=== PATIENT | male | born 1990 | race Caucasian/White ===

== ENCOUNTER → 2019-03-25 | Outpatient (CLI) | payer OTHER, SELFPAY | END | disposition home or self-care (01) | LOC: LABSPEC 15:51 | PROVIDERS: Family Provider Family Medicine; PCP Family Medicine; Referring Provider Otolaryngology; Visit Provider Otolaryngology | DX: J02.9 Acute pharyngitis, unspecified (principal) | CPT/HCPCS: 87070 ==

== ENCOUNTER → 2019-03-31 | Outpatient (CLI) | payer OTHER, SELFPAY ==
--- NOTE | 2019-03-31 06:52 | CT_ITS ---
STUDY: CT SOFT TISSUE NECK WITH CONTRAST REASON FOR EXAM: Male, 28 years old. Enlarging right neck mass for 4 weeks. RADIATION DOSAGE (If Supplied By Facility): CTDIvol = ( 18.64 ) mGy, DLP = ( 600.59 ) mGycm TECHNIQUE: The patient was scanned in a multi-detector CT scanner. High resolution transaxial imaging was performed following intravenous administration of IV Isovue 300 75. Sagittal and coronal images were reconstructed. Individualized dose optimization techniques were used for this CT. COMPARISON: None. FINDINGS: Normal bilateral parotid glands. 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 Normal bilateral parapharyngeal spaces. Within the carotid space deep to the right sternocleidomastoid muscle is a large well-circumscribed, homogeneous soft tissue attenuation mass measuring 4.8 x 5.2 x 2.7 cm in the craniocaudad, AP and transverse dimensions respectively, coronal image 55 and axial image 68. The mass does not appear vascular and does not significantly enhance. The mass displaces the carotid vessels medially. No osseous destruction. Normal bilateral sublingual and submandibular glands and spaces. Normal visualized nasopharynx. Normal retropharyngeal space. Normal perivertebral space. Normal visualized bilateral faucial tonsils. The visualized tongue, tongue base and oropharynx are normal. The visualized cervical lymph nodes (levels I-) are within normal size limits, and maintain normal morphology. There is no demonstrated solid or cystic mass lesion. There is no abnormal contrast enhancement. Normal epiglottis, bilateral vallecula and hypopharynx. The pre-epiglottic and paraglottic adipose spaces are normal. Normal visualized bilateral piriform sinuses, aryepiglottic folds, vocal cords, and arytenoid-cricoid articulations. Normal subglottic trachea. Normal bilateral lobes of the thyroid gland. Normal visualized pulmonary apices. Normal visualized paranasal sinuses. Normal visualized cervical spine. CT/Soft Tissue Neck WITH Contrast IMPRESSION: 5.2 cm fairly well-circumscribed right carotid space mass which is likely benign. Correlate with MRI with contrast. Electronically Signed: French Quintero MD at 8:21 EDT , Service support ,
== END | disposition home or self-care (01) ==
PROVIDERS: Family Provider Family Medicine; PCP Family Medicine; Referring Provider Otolaryngology; Visit Provider Otolaryngology
DX: R22.1 Localized swelling, mass and lump, neck (principal)
CPT/HCPCS: 70491; Q9967

== ENCOUNTER → 2019-04-12 | Outpatient (CLI) | payer OTHER, SELFPAY ==
--- NOTE | 2019-04-12 | ASPOS_PTH ---
PATIENT: PARISH RAZA LOC: [facility]#:[id number] AGE/SX: 28/M ROOM: RE04/12/[address]: Dr. Ramiro Alcala MD : 1990 BED: DIS: 04/12/2019 SPEC #: [id number] RECD: 04/12/19 10:41 STATUS: CHANDLER REJose A #: [id number] FRANKLIN: 04/12/19 00:[address]: Ramiro Alcala DEPT: CYTOLOGY RECD BY: Radames Sales ENTERED: 04/12/19 10:41 SP TYPE: ASP HERE OTHR DR: Dr. Armando Brito MD Tissues: Neck, NOS Procedures: Surgery Specimen Level IV Cytology Other Fine Needle Asp on Site HEADER OPERATION: FNA right neck mass PRE-OP DIAGNOSIS: Right neck mass TISSUE SUBMITTED: FNA right neck mass; smear and fluid for cytology, cell block and flow DIAGNOSIS CYTOLOGY Fine needle aspiration, right neck mass (smears & cell block): Consistent with B-cell lymphoma. See Comment. COMMENT The specimen is evaluated at the time of FNA by Dr. Bradford. 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 FLOW analysis reveals a CD10+ B-cell lymphoma (immunophenotype of germinal center origin, Burkitt lymphoma/Burkitt-like lymphoma or subset of diffuse large B-cell Lymphoma). Immunohistochemistry ([id number]) concurs and tumor cells displays a high (>95%) Ki67 proliferation index. Clinical correlation is suggested. Case has been reviewed in consultation with Dr. Palacios who concurs with the above diagnosis. IDC:SJ CYTOLOGY STUDY Slides are reviewed. CYTOLOGY GROSS Received is 0.2 ml of reddish material labeled with the patient's name, and designated right neck mass. Five imprints and three paps are made from the submitted fluid and the rest is added to CytoLyt for cell block preparation. Submitted for cytology study. / AM:maurice 04/12/19 TC:0 CPT:36836,54425,89258,29450
--- NOTE | 2019-04-12 | IMM_PTH ---
PATIENT: PARISH RAZA [facility][id number] AGE/SX: 28/M ROOM: RE04/12/[address]: Dr. Ramiro Alcala MD : 1990 BED: DIS: 04/12/2019 SPEC #: [id number] RECD: 04/13/19 11:18 STATUS: CHANDLER REQ #: [id number] FRANKLIN: 04/12/19 00:[address]: Ramiro Alcala DEPT: IMMUNOHISTOCHEMISTRY RECD BY: Kailyn Sow ENTERED: 04/13/19 11:19 SP TYPE: IMMUNO OTHR DR: Dr. Armando Brito MD Tissues: Neck, NOS Procedures: BCL-2 (add) BCL-6 (add) CD10 (add) CD15 (add) CD20 (add) CD30 (add) CD45 (add) CD79A (add) CYCLIN (add) KI-67 (add) MUM1 (add) C-MYC (add) Pankeratin (initial) PHYSICIAN & [address] [address] SPECIMEN INFORMATION: Tissue Source: Right neck mass, fine needle aspiration Clinical Info: Right neck mass Specimen Number: [id number] CPT code: 32946, 53598 x12 METHODOLOGY: Deparaffinized sections of prefer/formalin-fixed tissue or PAP/DQ stained slides are incubated with monoclonal/polyclonal antibodies/oligonucleotide probes. Localization is made via biotin free immunoperoxidase method. Appropriate controls are performed and reacted as expected. Results on target cell population are indicated in the following table: RESULTS: ANTIBODY / CLONE RESULT AE1-3 (AE1/AE3/PCK26) negative CD20 (L26) positive CD45 (RP2/18) positive CD79a (11E3) positive BCL-2 (bcl-2/100/D5) negative Ki-67 (30-9) positive, >95% C-MYC (Y69) positive BCL-6 (QS759P/A8) negative CD10 (56C6) positive CD15 (MMA) negative CD30 (Peter-H2) negative Cyclin D1/BCL-1 (SP4) negative MUM1 (MRQ-43) negative These tests were developed and their performance characteristics determined by [facility]. They may not have been cleared or approved by the U.S. Food and Drug Administration. The FDA has determined that such clearance or approval is not necessary. The above immunohistochemical/dualISH markers are ordered and reviewed by the Pathologist. INTERPRETATION: Right neck mass, fine needle aspiration (cell block): Consistent with B-cell lymphoma. AM:maurice 04/15/19 Comment: Flow analysis (viewable in EMR) concurs. The differential diagnosis incudes germinal center lymphoma, Burkitt/Burkitt-like lymphoma and subset of DLBCL Case has been reviewed in consultation with Dr. Palacios who concurs with the above diagnosis. IDC:ISHAAN
== END | disposition home or self-care (01) ==
LOC: LAB.FUTURE 09:15
PROVIDERS: Family Provider Family Medicine; PCP Family Medicine; Referring Provider Otolaryngology; Visit Provider Otolaryngology
DX: R22.1 Localized swelling, mass and lump, neck (principal)
CPT/HCPCS: 10021; 88161; 88305; 88341; 88342

== ENCOUNTER 2019-06-05 17:04 | Emergency (ER) | payer OTHER, SELFPAY ==
[2019-06-05] VITALS (7 sets, daily range): BP systolic 108–135; BP diastolic 65–82; PULSE 101–112; RESP 15–18; TEMP 36.9–38.7; O2SAT 96–100; BMI 29.5
--- NOTE | 2019-06-05 17:27 | CT_ITS ---
STUDY: CT BRAIN WITHOUT CONTRAST REASON FOR EXAM: Male, 28 years old. FRONTAL HEADACHE AND A FEVER -- HX:LYMPHOMA WITH LAST CHEMO ON 05-30-19 RADIATION DOSAGE (If Supplied By Facility): CTDIvol = ( 44.99 ) mGy, DLP = ( 796.11 ) mGycm TECHNIQUE: Transaxial CT imaging of the brain was performed without administration of intravenous contrast material. Individualized dose optimization techniques were used for this CT. COMPARISON: No relevant priors. FINDINGS: Normal soft tissue structures. Normal calvarium. Normal size ventricles and extra-axial spaces for the patient''s age. Normal white matter tracts of the cerebral hemispheres. Normal basal ganglia and thalami. Normal brainstem. Normal cerebellum. There is no intracranial hemorrhage. There are no findings of an acute ischemic infarction. Normal visualized paranasal sinuses. CT/Brain/Head without Contrast IMPRESSION: Normal unenhanced CT scan of the brain. Electronically Signed: Torres Handley DO at 18:46 EST Tel , Service support ,
--- NOTE | 2019-06-05 17:29 | ED.DCSUM_ITS ---
- ER Visit Summary Date of Service: 06/05/19 Chief Complaint: Fever History of Present Illness: The patient is a 28 M who presents with a fever that began today. Patient checked his temperature at home and it was 101.7. Patient is on chemotherapy for Burkitt's lymphoma. Patient states his last chemo was 6 days ago. Patient admits to a headache. Patient states the pain is over the frontal area. Patient describes it as aching. Patient states nothing makes it better or worse. Patient denies any nausea or vomiting. Patient denies any cough or shortness of breath. Physical Examination: Vital signs are stable. Patient is afebrile here. Patient is in no acute distress. Oral mucosa is pink and moist. Neck is supple. Trachea is midline. There is no JVD. Heart was regular rate and rhythm. Lungs are clear and equal bilaterally. Abdomen is soft. Bowel sounds are normal. Cranial nerves II through XII are intact. There are no focal motor or sensory deficits noted. Test Results: CBC showed a white blood cell count of 0.5, hemoglobin was 7.2, platelets are 8. Metabolic profile was essentially within normal limits. Urinalysis does not show any evidence of urinary tract infection. PA and lateral chest x-ray was obtained and does not show any acute cardiopulmonary process. Emergency Department Course and Treatment: Patient was given a dose of Tylenol here. Blood cultures were obtained. Patient was started on Zosyn and vancomycin. Case was discussed with Dr. Patel who is on-call for his oncologist at [facility]. He recommended transferring the patient to the main campus at [facility]. Patient is agreeable with this. Call was placed to the transfer line. Patient will be transferred there. Disposition: Transfer to [facility] Impression: 1. Neutropenic fever 2. Pancytopenia This note was generated with PulsePoint dictation software. It may contain incorrect words, spelling, and punctuation that were not noted in review of the chart prior to signing ED Disposition - Plan for ED Patient: Disposition: Acute Care Hospital - Other Diagnosis: Neutropenic fever, Pancytopenia, Burkitts lymphoma Referrals: Armando Brito MD [Primary Care Provider] -
--- NOTE | 2019-06-05 18:12 | RAD_ITS ---
STUDY: X-RAY CHEST REASON FOR EXAM: Male, 28 years old. CHEMO PT HAD FEVER 101.7 AT HOME. LAST CHEMO THIS PAST THURSDAY. CANCER TX FOR LYMPHOMA. TECHNIQUE: PA and lateral views of the chest. COMPARISON: None. FINDINGS: The lungs are clear and expanded. There is no demonstrated pleural abnormality. Normal size heart. Normal mediastinum and rachelle. Normal visualized pulmonary arteries. Normal visualized aortic arch and descending thoracic aorta. Normal visualized thoracic spine. Normal visualized ribs, clavicles, and shoulders. There is no demonstrated abnormality of the visualized soft tissue structures of the upper abdomen. RAD/Chest PA and Lateral IMPRESSION: Normal x-ray examination of the chest. Electronically Signed: Torres Handley DO at 18:29 EST Tel , Service support ,
[2019-06-05 18:27] LABS: Absolute Lymphocyte Count 0.21 X10^3/uL (0.83-4.51); Absolute Neutrophil Count 0.1 X10^3/uL (2.0-7.7); Basophil# 0.01 X10^3/uL; Hematocrit 19.3 % (40-54); Hemoglobin 7.2 g/dL (13.0-16.5); Lymphocyte # 0.21 X10^3/ul (4.0); Mean Corp Hgb Conc 37.3 g/dL (32-36); Mean Corpuscular Volume 77.8 fL (80-94); Mean Platelet Vol. 10.1 fl (6.2-12.0); Monocyte# 0.17 X10^3/uL; NRBC Flagged by Analyzer 0 % (0-5); POSITIVE COUNT YES; POSITIVE DIFFERENTIAL YES; POSITIVE MORPHOLOGY YES; RBC Distribution Width CV 12.8 % (11.6-14.6); RBC Distribution Width SD 35.7 fl (35.1-43.9); Red Blood Count 2.48 M/mm3 (4.6-6.2)
[2019-06-05 18:37] LABS: ALB/GLOB Ratio 1.1 RATIO (0.9-2.4); AST(SGOT) 12 U/L (15-37); Alanine Aminotransfer ALT/SGPT 52 U/L (16-61); Albumin, Serum 3.6 g/dL (3.2-5.0); Alkaline Phosphatase 51 U/L (45-117); Anion Gap 4 (5-15); BUN 12 mg/dL (7-18); BUN/Creat Ratio 16.2 RATIO (10-20); Calcium,Total 8.7 mg/dL (8.5-10.1); Chloride 105 mmol/L (98-107); Creatinine, Serum 0.74 mg/dL (0.70-1.30); EST Glomerular Filtration Rate 133 mL/min (>60); Est Glom Filt Rate - Afr Amer 161 mL/min (>60); Estimated Creatinine Clearance 167.96 ml/min; Globulin 3.2 g/dL (2.2-4.2); Glucose 92 mg/dL (74-106); Potassium 3.7 mmol/L (3.5-5.1); Protein, Total 6.8 g/dL (6.4-8.2); Sodium Level 139 mmol/L (136-145)
[2019-06-05 18:44] LABS: Lactic Acid 1.9 mmol/L (0.4-1.9)
[2019-06-05 18:45] LABS: Differential Indicated SCAN CRITERIA MET; Platelet Count 8 K/mm3 (150-450); White Blood Count 0.5 K/mm3 (4.4-11.0)
[2019-06-05 18:46] LABS: Differential Comment SCANNED
[2019-06-05 19:14] LABS: Bacteria 0 SEEN /hpf (None Seen); Color, Urine Yellow (Yellow); Glucose, Dipstick Normal (Normal); Ketone-Dipstick Negative (Negative); Leukocyte Esterase-Dipstick Negative /ul (Negative); Mucous, Urine 0 SEEN /hpf (<or=2+); Nitrite-Dipstick Negative (Negative); Occult Blood-Urine 10 /ul (Negative); Protein-Dipstick Negative (Negative); Red Blood Cells-Urine 0 SEEN /hpf (0-5); Specific Gravity, Urine 1.005 (1.002-1.030); Squamous Epithelial Cells - UA 0 SEEN /hpf (0-5); Urine Bilirubin Dipstick Negative (Negative); Urine Clarity Sl. Cloudy (Clear); Urine Urobilinogen Normal (Normal); White Blood Cells 0 SEEN /hpf (0-5)
[2019-06-05] MEDS: Acetaminophen 500 MG Tablet 1000 MG PO (19:31)
[2019-06-05] MEDS: Vancomycin IV 1,000 MG/200 ML BAG 200 MG IV (20:53)
--- NOTE | 2019-06-05 21:37 | ED.RN ---
CALLED TRANSFER CENTER, SPOKE TO KARTHIKEYAN, NO BED ASSIGNMENT AT THIS TIME, AND NO ETA AT THIS TIME
[2019-06-06 12:11] LABS: Pathologist Review Reviewed
== END 2019-06-05 22:42 | disposition short-term general hospital (02) ==
PROVIDERS: Emergency Provider Emergency Medicine; Family Provider Family Medicine; PCP Family Medicine
DX: D70.9 Neutropenia, unspecified (principal); R50.81 Fever presenting with conditions classified elsewhere; D61.818 Other pancytopenia; C83.70 Burkitt lymphoma, unspecified site
CPT/HCPCS: 36592; 70450; 71046; 80053; 81001; 83605; 85025; 87040; 96365; 96367; 99283; J7050; A4216

== ENCOUNTER → 2020-03-02 11:57 | Outpatient (CLI) | payer OTHER, SELFPAY ==
[2019-06-05 17:06] VITALS: BMI 29.5
[2020-03-02 15:50] LABS: Absolute Lymphocyte Count 1.48 X10^3/uL (0.83-4.51); Absolute Neutrophil Count 2.3 X10^3/uL (2.0-7.7); Basophil# 0.03 X10^3/uL; Basophil% 0.7 % (0-1); Eosinophil# 0.14 X10^3/uL; Eosinophils% 3.1 % (0-5); Hematocrit 41.9 % (40-54); Hemoglobin 14.1 g/dL (13.0-16.5); Lymphocyte # 1.48 X10^3/ul (4.0); Mean Corp Hgb Conc 33.7 g/dL (32-36); Mean Corpuscular Hgb 28.5 pg (27.0-32.0); Mean Corpuscular Volume 84.6 fL (80-94); Mean Platelet Vol. 9.1 fl (6.2-12.0); Monocyte# 0.53 X10^3/uL; Monocyte% 11.8 % (0-10); NRBC Flagged by Analyzer 0 % (0-5); Neutrophil # 2.29 X10^3/uL (2.7-7.7); Neutrophil % 51.2 % (47-70); Platelet Count 193 K/mm3 (150-450); RBC Distribution Width CV 13.2 % (11.6-14.6); RBC Distribution Width SD 40.7 fl (35.1-43.9); Red Blood Count 4.95 M/mm3 (4.6-6.2); White Blood Count 4.5 K/mm3 (4.4-11.0)
[2020-03-02 16:37] LABS: HIV - WCH Non-Reactive (Nonreactive)
[2020-03-04 14:06] LABS: HEPATITIS B SURFACE AG Negative (Negative); Hepatitis A AB, Total Negative (Negative); Hepatitis A IgM Antibody Negative (Negative); Hepatitis B Core AB IgM Negative (Negative); Hepatitis B Core Ab Total Negative (Negative); Hepatitis C Ab <0.1 s/co ratio (0.0-0.9)
[2020-03-04 16:32] LABS: Hep B Surface Antibodies Non Reactive (.)
[2020-03-08 05:23] LABS: Rapid Plasmin Reagin (RPR) NONREACTIVE (NONREACTIVE)
== END ==
PROVIDERS: PCP Family Medicine; Referring Provider Family Medicine; Visit Provider Family Medicine
DX: N50.89 Other specified disorders of the male genital organs (principal)
CPT/HCPCS: 36415; 85025; 86592; 86703; 86704; 86705; 86706; 86708; 86709; 86803; 87340

== ENCOUNTER → 2020-03-27 14:00 | Outpatient (CLI) | payer OTHER, SELFPAY ==
[2019-06-05 17:06] VITALS: BMI 29.5
[2020-03-27 22:46] LABS: Chlamydia Trachomatis by PCR Negative (Negative); Neisserai gonorrhoeae by PCR Negative (Negative); Probe Check PASS; Sample Adequacy Control PASS; Specimen Processing Control PASS
== END ==
PROVIDERS: PCP Family Medicine; Referring Provider Family Medicine; Visit Provider Family Medicine
DX: N50.89 Other specified disorders of the male genital organs (principal)
CPT/HCPCS: 87491; 87591

== ENCOUNTER → 2022-01-21 | Outpatient (CLI) | payer OTHER, SELFPAY ==
[2022-01-21 10:03] LABS: Absolute Lymphocyte Count 1.66 X10^3/uL (0.83-4.51); Absolute Neutrophil Count 2.3 X10^3/uL (2.0-7.7); Basophil# 0.02 X10^3/uL; Basophil% 0.4 % (0-1); Eosinophil# 0.14 X10^3/uL; Hematocrit 42.9 % (40-54); Hemoglobin 15.2 g/dL (13.0-16.5); Lymphocyte # 1.66 X10^3/ul (0.83-4.51); Lymphocyte % 35.5 % (19-41); Mean Corp Hgb Conc 35.4 g/dL (32-36); Mean Corpuscular Hgb 29.7 pg (27.0-32.0); Mean Corpuscular Volume 83.8 fL (80-94); Mean Platelet Vol. 8.9 fl (6.2-12.0); Monocyte# 0.53 X10^3/uL; Monocyte% 11.3 % (0-10); NRBC Flagged by Analyzer 0 % (0-5); Neutrophil # 2.32 X10^3/uL (2.7-7.7); Neutrophil % 49.6 % (47-70); Platelet Count 203 K/mm3 (150-450); RBC Distribution Width CV 13.2 % (11.6-14.6); RBC Distribution Width SD 40.1 fl (35.1-43.9); Red Blood Count 5.12 M/mm3 (4.6-6.2); White Blood Count 4.7 K/mm3 (4.4-11.0)
[2022-01-21 10:48] LABS: ALB/GLOB Ratio 1.1 RATIO (0.9-2.4); AST(SGOT) 23 U/L (15-37); Alanine Aminotransfer ALT/SGPT 44 U/L (16-61); Alkaline Phosphatase 43 U/L (45-117); Anion Gap 5 (5-15); BUN 13 mg/dL (7-18); BUN/Creat Ratio 15.7 RATIO (10-20); Calcium,Total 8.9 mg/dL (8.5-10.1); Chloride 104 mmol/L (98-107); Creatinine, Serum 0.83 mg/dL (0.70-1.30); EST Glomerular Filtration Rate 115 mL/min (>60); Est Glom Filt Rate - Afr Amer 139 mL/min (>60); Globulin 3.8 g/dL (2.2-4.2); Glucose 96 mg/dL (74-106); Potassium 4.3 mmol/L (3.5-5.1); Protein, Total 7.8 g/dL (6.4-8.2); Sodium Level 138 mmol/L (136-145); Thyroid Stim Hormone (TSH) 2.15 uIU/mL (0.358-3.74)
== END | disposition home or self-care (01) ==
LOC: MFPLAB 09:17
PROVIDERS: PCP Nurse Practitioner Family; Referring Provider Nurse Practitioner Family; Visit Provider Nurse Practitioner Family
DX: R42 Dizziness and giddiness (principal)
CPT/HCPCS: 36415; 80053; 84443; 85025

== ENCOUNTER → 2022-08-04 | Outpatient (CLI) | payer BC, SELFPAY ==
[2022-08-04 17:25] LABS: Absolute Lymphocyte Count 1.39 X10^3/uL (0.83-4.51); Absolute Neutrophil Count 2.8 X10^3/uL (2.0-7.7); Basophil# 0.02 X10^3/uL; Basophil% 0.4 % (0-1); Eosinophil# 0.13 X10^3/uL; Eosinophils% 2.7 % (0-5); Hematocrit 41.5 % (40-54); Lymphocyte # 1.39 X10^3/ul (0.83-4.51); Mean Corp Hgb Conc 33.7 g/dL (32-36); Mean Corpuscular Hgb 28.6 pg (27.0-32.0); Mean Corpuscular Volume 84.7 fL (80-94); Mean Platelet Vol. 8.9 fl (6.2-12.0); Monocyte# 0.43 X10^3/uL; NRBC Flagged by Analyzer 0 % (0-5); Neutrophil # 2.81 X10^3/uL (2.7-7.7); Neutrophil % 58.7 % (47-70); Platelet Count 210 K/mm3 (150-450); RBC Distribution Width SD 39.9 fl (35.1-43.9); White Blood Count 4.8 K/mm3 (4.4-11.0)
[2022-08-04 18:01] LABS: ALB/GLOB Ratio 1.1 RATIO (0.9-2.4); AST(SGOT) 18 U/L (15-37); Alanine Aminotransfer ALT/SGPT 31 U/L (16-61); Albumin, Serum 3.9 g/dL (3.2-5.0); Alkaline Phosphatase 55 U/L (45-117); Anion Gap 5 (5-15); BUN 18 mg/dL (7-18); BUN/Creat Ratio 20.7 RATIO (10-20); Calcium,Total 8.8 mg/dL (8.5-10.1); Chloride 109 mmol/L (98-107); Creatinine, Serum 0.87 mg/dL (0.70-1.30); EST Glomerular Filtration Rate 108 mL/min (>60); Est Glom Filt Rate - Afr Amer 131 mL/min (>60); Free T3 2.5 pg/mL (2.18-3.98); Globulin 3.6 g/dL (2.2-4.2); Glucose 114 mg/dL (74-106); Potassium 3.6 mmol/L (3.5-5.1); Protein, Total 7.5 g/dL (6.4-8.2); Sodium Level 141 mmol/L (136-145); T4 Free Direct 0.88 ng/dL (0.76-1.46); Thyroid Stim Hormone (TSH) 1.52 uIU/mL (0.358-3.74)
[2022-08-04 18:29] LABS: Hemoglobin A1c 5.3 % (3.8-5.6)
== END | disposition home or self-care (01) ==
LOC: MFPLAB 16:30
PROVIDERS: PCP Nurse Practitioner Family; Visit Provider Nurse Practitioner Family
DX: G25.0 Essential tremor (principal)
CPT/HCPCS: 36415; 80053; 83036; 84439; 84443; 84481; 85025

== ENCOUNTER → 2024-07-18 | Outpatient (CLI) | payer BC, SELFPAY ==
[2024-07-18 17:50] LABS: Absolute Lymphocyte Count 2.15 X10^3/uL (0.83-4.51); Absolute Neutrophil Count 3.3 X10^3/uL (2.0-7.7); Basophil# 0.07 X10^3/uL; Basophil% 1.1 % (0-1); Eosinophil# 0.24 X10^3/uL; Eosinophils% 3.8 % (0-5); Hematocrit 41.3 % (40-54); Hemoglobin 14.5 g/dL (13.0-16.5); Lymphocyte # 2.15 X10^3/ul (0.83-4.51); Lymphocyte % 34.2 % (19-41); Mean Corp Hgb Conc 35.1 g/dL (32-36); Mean Corpuscular Hgb 29.5 pg (27.0-32.0); Mean Corpuscular Volume 83.9 fL (80-94); Mean Platelet Vol. 9.4 fl (6.2-12.0); Monocyte# 0.54 X10^3/uL; Monocyte% 8.6 % (0-10); NRBC Flagged by Analyzer 0 % (0-5); Neutrophil # 3.27 X10^3/uL (2.7-7.7); Platelet Count 238 K/mm3 (150-450); RBC Distribution Width CV 12.7 % (11.6-14.6); RBC Distribution Width SD 38.2 fl (35.1-43.9); Red Blood Count 4.92 M/mm3 (4.6-6.2); White Blood Count 6.3 K/mm3 (4.4-11.0)
[2024-07-18 18:22] LABS: ALB/GLOB Ratio 1.2 RATIO (0.9-2.4); AST(SGOT) 26 U/L (15-37); Alanine Aminotransfer ALT/SGPT 55 U/L (16-61); Albumin, Serum 4.1 g/dL (3.2-5.0); Alkaline Phosphatase 45 U/L (45-117); Anion Gap 7 (5-15); BUN 9 mg/dL (7-18); BUN/Creat Ratio 8.8 RATIO (10-20); Calcium,Total 9.3 mg/dL (8.5-10.1); Chloride 102 mmol/L (98-107); Cholesterol 164 mg/dL (200); Creatinine, Serum 1.02 mg/dL (0.70-1.30); EST Glomerular Filtration Rate 89 mL/min (>60); Est Glom Filt Rate - Afr Amer 108 mL/min (>60); Globulin 3.5 g/dL (2.2-4.2); Glucose 79 mg/dL (74-106); High Density Lipoprotein 43 mg/dL; Potassium 3.9 mmol/L (3.5-5.1); Protein, Total 7.6 g/dL (6.4-8.2); Sodium Level 136 mmol/L (136-145); Triglycerides 52 mg/dL; Very Low Density Lipoprotein 10 mg/dL (5-40)
== END | disposition home or self-care (01) ==
LOC: MFPLAB 14:44
PROVIDERS: PCP Family Medicine; Referring Provider Family Medicine; Visit Provider Family Medicine
DX: Z13.1 Encounter for screening for diabetes mellitus (principal); C83.7 Burkitt lymphoma; Z13.220 Encounter for screening for lipoid disorders
CPT/HCPCS: 36415; 80053; 80061; 85025

== ENCOUNTER 2025-02-15 20:47 | Emergency (ER) | payer BC, SELFPAY ==
[2025-02-15 20:50] VITALS: BP 134/86; PULSE 90; RESP 18; TEMP 36.6; O2SAT 99; BMI 31.4
--- NOTE | 2025-02-15 22:23 | EDS_ITS ---
HPI History of Present Illness Chief Complaint: Nosebleed [facility] Medical History no medical history Home Medications ?Medication ?Instructions ?Recorded ?Last Taken ?Type ondansetron 8 mg disintegrating 8 mg PO TID 06/05/19 U nknown History tablet Allergy/AdvReac Type Severity Reaction Status Date / Time No Known Allergies Allergy Verified 02/15/25 20:49 Social History Smoking Status: Never smoker EXAM Physical Exam Const Vital Signs: 02/15/25 20:50 Temperature 97.9 F Temperature Source Temporal Pulse Rate 90 Respiratory Rate 18 Blood Pressure 134/86 H Blood Pressure Mean 102 Pulse Ox 99 Oxygen Delivery Method Room Air [facility] MDM Narrative Medical decision making narrative: HISTORY OF PRESENT ILLNESS: Chief complaint: Nosebleed 34-year-old male with no significant past. He resents epistaxis. Notes he has been having intermittent epistaxis for the past several weeks. Notes 2 nosebleeds today. Denies blood thinners. States he recently started taking allergy medication prevent nosebleeds from happening. REVIEW OF SYSTEMS: Pertinent positives: Epistaxis Pertinent negatives: Lightheadedness, dizziness, chest pain PHYSICAL EXAM: Nursing triage notes reviewed, Vital signs reviewed Constitutional: please see [facility] HENT: MMM, dried blood noted in the anterior right nare. No active bleeding noted. No posterior oropharyngeal clots noted. Eyes: Pupils equal round and reactive to light, Extraocular muscles intact Neck: No stridor, no JVD, full neck ROM Lungs: Clear to auscultation, No wheezing or rales. No increased work of breathing, no conversational dyspnea, no accessory muscle use, no nasal flaring. No respiratory distress noted Heart: Regular rate and rhythm, No murmurs, No rubs and No gallops, 2+ distal pulses (radial, femoral, posterior tibial) in all extremities MEDICAL DECISION MAKING: Chief Complaint: please see HPI External records reviewed: Reviewed prior imaging Factors affecting care: none [facility] Narrative: Patient was initially hemodynamically stable, afebrile and nontoxic-appearing. Exam consistent with anterior epistaxis. Applied pressure with nasal clamp. No active hemostasis noted. Given the patient intermittent symptoms over 2 weeks he opted for ED cauterization. I applied let for additional hemostasis as well as anesthesia. Use silver nitrate sticks for chemical cauterization. Patient was hemostatic after this intervention. Gave strict return precautions, home epistaxis instructions, outpatient ENT follow-up instructions. The patient and/or family, caregivers express understanding. The patient and/or family, caregivers agrees with the plan. Shared decision making: I will have a discussion with the patient and or visitors regarding risk/benefits of further testing or admission. They will be made aware of of the risk/benefits inherent in this decision they will be given the opportunity to voice understanding. Total critical care time today provided was at least 0 minutes. This excludes separately billable procedures. Critical care time (if documented) is secondary to the patient having high probability of clinically significant/life threatening deterioration in the patient's condition which required my urgent intervention. Impression: 1. Acute anterior epistaxis Dispo: Discharge home This note was generated with uBeam dictation software. It may contain incorrect words, spelling, and punctuation that were not noted in review of the chart prior to signing. Discharge Plan Triage Chief Complaint: Nosebleed ED Provider: Michael Welch Dx/Rx/DC Orders Clinical Impression: Acute anterior epistaxis Instructions: ED Epistaxis (Adult) Prescriptions: No Action ondansetron 8 MG tablet,disintegrating 8 mg PO TID Primary Care Provider: Ashley Knox Referrals: Romie Cazares MD [Med Staff - Courtesy Staff] - Activity Restrictions/Additional Instructions: Thank you for trusting us with your care today! If you develop a nosebleed at home. Hold firm pressure until your knuckles turn white or your skin blanches. Do this for 10 to 15 minutes. If you continue bleeding please blow your nose vigorously. Then apply Afrin (o xymetazoline). Afrin can be obtained [id number] at any pharmacy or drugstore. If you continue to bleed after the 2 interventions please return to the emergency department. Please return to the emergency department if your symptoms change or worsen. Please follow with your primary care physician for further outpatient evaluation and management. Print Language: Polish Disposition Disposition: Home, Self Care
[2025-02-15] MEDS: Silver Nitrate (BKC) 1 EACH TOPICAL (22:50)
[2025-02-15 23:19] VITALS: BP 133/79; PULSE 78; RESP 16; TEMP 36.6; O2SAT 100
[2025-02-15] MEDS: Lidocaine/Epi/Tetracaine 50 ML 1 APPLIC TOPICAL (23:19)
[2025-02-16] MEDS: Oxymetazoline 0.05% 1 SPRAY SPRAY.BTL 2 SPRAY NASAL (00:52)
--- NOTE | 2025-02-16 00:58 | ED.RN ---
Dressing applied to packed nose per ED MD instructions after pt ambulated well with no more active bleeding noted. Pt ambulated out of dept without difficulty.
== END 2025-02-16 00:59 | disposition home or self-care (01) ==
PROVIDERS: Emergency Provider Emergency Medicine; PCP Family Medicine; Visit Provider Emergency Medicine
DX: R04.0 Epistaxis (principal)
CPT/HCPCS: 30901; 99284

== ENCOUNTER 2025-02-16 13:54 | Emergency (ER) | payer BC, SELFPAY ==
[2025-02-16 13:55] VITALS: BP 146/86; PULSE 91; RESP 16; TEMP 36.2; O2SAT 99; BMI 32.6
[2025-02-16 16:39] VITALS: BP 144/87; PULSE 77; RESP 16; TEMP 36.3; O2SAT 100
--- NOTE | 2025-02-16 16:46 | EDS_ITS ---
HPI History of Present Illness Chief Complaint: Nosebleed Narrative Narrative: Patient is a 34-year-old male presenting to the emergency department for epistaxis. Patient was here last night for the same complaint. Had a right sided nasal packing placed. States that today he started having bleeding from the left side. Reports that since being here it is stopped. He has an appointment with ENT on Thursday. He is not on any oral anticoagulation. [facility] Medical History (Updated 02/16/25 @ 16:05 by Aleisha Chowdary) Lymphoma in remission Home Medications ?Medication ?Instructions ?Recorded ?Last Taken ?Type ondansetron 8 mg disintegrating 8 mg PO TID 06/05/19 U nknown History tablet amoxicillin 500 mg capsule 500 mg PO TID 3 days #9 cap s 02/16/25 Unknown Rx Allergy/AdvReac Type Severity Reaction Status Date / Time No Known Allergies Allergy Verified 02/16/25 13:54 Social History Smoking Status: Never smoker EXAM Physical Exam Const Vital Signs: 02/16/25 13:55 02/16/25 16:39 Temperature 97.1 F L 97.3 F L Temperature Source Temporal Pulse Rate 91 77 Respiratory Rate 16 16 Blood Pressure 146/86 H 144/87 H Blood Pressure Mean 106 106 Pulse Ox 99 100 Oxygen Delivery Method Room Air Discharge Plan Triage Chief Complaint: Nosebleed ED Provider: Morelia Samano Dx/Rx/DC Orders Prescriptions: No Action ondansetron 8 MG tablet,disintegrating 8 mg PO TID amoxicillin 500 mg capsule 500 mg PO TID 3 Days Qty: 9 0RF Primary Care Provider: Ashley Knox Referrals: Ashley Knox MD [Primary Care Provider] - Print Language: Malawian
--- NOTE | 2025-02-16 16:46 | EX.ED.DYSGE1 ---
HPI History of Present Illness Chief Complaint: Nosebleed Narrative Narrative: Patient is a 34-year-old male presenting to the emergency department for epistaxis. Patient was here last night for the same complaint. Had a right sided nasal packing placed. States that today he started having bleeding from the left side. Reports that since being here it is stopped. He has an appointment with ENT on Thursday. He is not on any oral anticoagulation. [facility] Medical History (Updated 02/16/25 @ 16:[address] Morelia Samano MD) Lymphoma in remission Home Medications ?Medication ?Instructions ?Recorded ?Last Taken ?Type ondansetron 8 mg disintegrating 8 mg PO TID 06/05/19 Unknown History tablet amoxicillin 500 mg capsule 500 mg PO TID 3 days #9 caps 02/16/25 Unknown Rx Allergy/AdvReac Type Severity Reaction Status Date / Time No Known Allergies Allergy Verified 02/16/25 13:54 Social History Smoking Status: Never smoker ROS ROS ED ROS Narrative see HPI EXAM Physical Exam Narrative Exam Narrative: Vital signs: Reviewed General: Alert and orientedx3. No acute distress HEENT: Head is normocephalic and atraumatic, sinuses nontender, pupils equal round and reactive. Packing in right naris. There is no bleeding around the packing. There is no dried blood or active bleeding from the left naris. No active bleeding seen in the posterior oropharynx. Oropharynx and throat exams normal. Neck: Supple without lymphadenopathy nontender Cardiovascular: Regular rate and rhythm, no murmurs. No rubs or gallops. Normal S1 and S2 Respiratory: Clear to auscultation bilaterally. No wheezes, rales, rhonchi Abdominal: Soft and nontender. Normal bowel sounds. No guarding or rebound. Nonsurgical abdomen Extremities: No tenderness. No bruising. Normal range of motion. Normal sensation. Skin: No rash or redness. Neurological: Cranial nerves II through XII are grossly intact. Normal strength and sensation. Normal cerebellar function The rest of the physical exam is unremarkable Const Vital Signs: 02/16/25 13:55 02/16/25 16:39 Temperature 97.1 F L 97.3 F L Temperature Source Temporal Pulse Rate 91 77 Respiratory Rate 16 16 Blood Pressure 146/86 H 144/87 H Blood Pressure Mean 106 106 Pulse Ox 99 100 Oxygen Delivery Method Room Air MDM MDM MDM Narrative Medical decision making narrative: Patient is a 34-year-old male presenting to the emergency department for epistaxis. Patient was seen and examined. Vitals are stable. Patient resting in chair comfortably no acute distress. No active bleeding on exam here. Patient has a follow-up with ENT on Thursday. Packing still in place in the right nares. He is not on any oral anticoagulation. Recommended returning if he develops any new epistaxis. Patient agreeable with the plan. Patient discharged from the Emergency Department. I do not feel that the patient's evaluation reveals any acute reason for admission at this time. I instructed them to either follow-up with their primary care physician or promptly return to the Emergency Department for reevaluation should symptoms worsen or new symptoms develop. I explained what symptoms would indicate the need to return to the emergency department. Shared decision making was used. The patient voiced understanding of the treatment plan and is agreeable with it. Clinical impression Epistaxis Discharge Plan Triage Chief Complaint: Nosebleed ED Provider: Morelia Samano Dx/Rx/DC Orders Clinical Impression: Acute anterior epistaxis Instructions: Nosebleed Prescriptions: No Action ondansetron 8 MG tablet,disintegrating 8 mg PO TID amoxicillin 500 mg capsule 500 mg PO TID 3 Days Qty: 9 0RF Stand Alone Forms: ED Work / School Excuse Primary Care Provider: Ashley Knox Referrals: Romie Cazares MD [Med Staff - Courtesy Staff] - 3-5 Days (on Thursday ) Ashley Knox MD [Primary Care Provider] - Activity Restrictions/Additional Instructions: Your evaluation in the Emergency Department did not reveal any acute reason for admission. However, I want to emphasize that you may be early in the course of a disease process or illness even if it is not present. For this reason you should follow-up within 24 hours for reevaluation with either your primary care physician or if necessary back here in the Emergency Department. You should return to the Emergency Department immediately if your symptoms worsen or new symptoms develop. Print Language: Marshallese Disposition Disposition: Home, Self Care Discharge Date/Time: 02/16/25 17:00
--- OUTSIDE RECORDS SUMMARY | 2025-02-16 21:37 | XMS RPT_ITS | CCD ---
Author Organization [facility] Care Team Providers Care Compound Machine Operator Name Role Phone Dr. Ramiro Alcala Referring Unavailable Samantha, Dr. Melia Hernandez Admitting Unava ilable Samantha, Dr. Melia Hernandez Attending Unava ilable ALISSA, WOO Riddle Attending Unavaila ble Samantha, Dr. Melia Hernandez Admitting Unava ilable Fredrick, Dr. Ramiro Johnson Referring Unavailable Unavailable Primary Care Provider Unavailabl e Alissa WALKING DRAGLINE OPERATOR-STUDENT ADMISSIONS CLERK, Mary Anne Riddle Unavailable Shobha vailable Wade REYES PhD, Merna Unavailable Ashley Knox Referring Unavailable Ashley Knox Attending Unavailable Ashley Knox Primary Care Unavailable Wade REYES PhD, Merna Unavailable Generic Provider , No Assigned Pcp Primary Car e Provider Unavailable MERNA CORONEL Attending Unavailable Ashley Knox MD Primary Care Provider [phone] Dr. Michael Welch DO Emergency Provider Selwyn REYES, Dr. Thibodeaux Emergency Provider Unavailab le Medications Current Medications Medication Drug Class(es) Dates Sig (Normalized) Sig (Original) amoxicillin 500 mg oral capsule (2 sources) Penicillin-class Antibacterial Start: 02-16-2025 take 1 capsule by mouth three times daily Amoxicillin 500 mg capsule Active 500 mg PO THREE TIMES A DAY 9 3 0 February 16, 2025 12:00am ondansetron 8 mg disintegrating oral tablet (4 sources) Serotonin-3 Receptor Antagonist Start: 06-05-2019 take 1 tablet by mouth three times daily Ondansetron 8 MG tablet,disintegra ting Active 8 mg PO THREE TIMES A DAY June 05, 2019 1:00am Problems Problem Classification Problem Date Documented Da te Episodic/Chronic Deficiency and other anemia (4 sources) Pancytopenia; Translations: [Other pancytopenia] 06-06-2019 Chronic Diseases of white blood cells (4 sources) Febrile neutropenia; Translations: [Neutropenia, unspecified] 06-06-2019 Chronic Non-Hodgkin`s lymphoma (14 sources) Burkitt's lymphoma (clinical); 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, unspecified site] Onset: 11-14-2022 06-06-2019 Chronic Other screening for suspected conditions (not mental disorders or infectious disease) (1 source) Encounter for screening for diabetes mellitus; Translations: [Encounter for screening for diabetes mellitus] Onset: 08-05-2024 Episodic Other upper respiratory disease (2 sources) Anterior epistaxis; Translations: [Epistaxis] 02-15-2025 Episodic Unclassified (1 source) on Thursday Results Test Name Value Interpretation Reference Range Facility CBC W Auto Differential pane l (Bld)on 12-02-2024 Basophils (Bld) [#/Vol] 0.02 10*3/uL [facility] Basophils/100 WBC (Bld) 0.4 % 0.0 - 2.0 % [facility] Eosinophils (Bld) [#/Vol] 0.17 10*3/uL [facility] Eosinophils/100 WBC (Bld) 3.1 % 0.0 - 6.0 % [facility] Erythrocyte distribution width (RBC) [Ratio] 12.5 % 11.5 - 14.5 % [facility] Hematocrit (Bld) [Volume fraction] 46.6 % 41.0 - 52.0 % [facility] Hemoglobin (Bld) [Mass/Vol] 16.3 g/dL 13.5 - 17.5 g/dL [facility] Immature granulocytes (Bld) [#/Vol] 0.01 10*3/uL [facility] Immature granulocytes/100 WBC (Bld) 0.2 % 0.0 - 0.9 % [facility] Comment on above: Immature Granulocyte Count (IG) includes promyelocytes, myelocytes and metamyelocytes but does not include bands. Percent differential counts (%) should be interpreted in the context of the absolute cell counts (cells/UL). Lymphocytes (Bld) [#/Vol] 1.89 10*3/uL [facility] Lymphocytes/100 WBC (Bld) 34.7 % 13.0 - 44.0 % [facility] MCH (RBC) [Entitic mass] 29.7 pg 26.0 - 34.0 pg [facility] MCHC (RBC) [Mass/Vol] 35 g/dL 32.0 - 36.0 g/dL [facility] MCV (RBC) [Entitic vol] 85 fL 80 - 100 fL [facility] Monocytes (Bld) [#/Vol] 0.56 10*3/uL [facility] Monocytes/100 WBC (Bld) 10.3 % 2.0 - 10.0 % [facility] Neutrophils (Bld) [#/Vol] 2.79 10*3/uL [facility] Comment on above: Percent differential counts (%) should be interpreted in the context of the absolute cell counts (cells/uL). Neutrophils/100 WBC (Bld) 51.3 % 40.0 - 80.0 % [facility] Nucleated RBC/100 WBC (Bld) [Ratio] 0 % [facility] Platelets (Bld) [#/Vol] 218 10*3/uL [facility] RBC (Bld) [#/Vol] 5.49 10*6/uL [facility] WBC (Bld) [#/Vol] 5.4 10*3/uL [facility] Basophils (Bld) [#/Vol] 0.02 x10*3/uL Normal 0.00-0.[address] [facility] Comment on above: Performed By: #### 5 7021-8 #### HUBERT JANSEN ([id number]) [facility] (NI) [address] [place] [address] Basophils/100 WBC (Bld) 0.4 % Normal 0.0-2.[address] [facility] Comment on above: Performed By: #### 5 7021-8 #### HUBERT JANSEN ([id number]) [facility] (NI) [address] [place] [address] Eosinophils (Bld) [#/Vol] 0.17 x10*3/uL Normal 0.00-0.[address] [facility] Comment on above: Performed By: #### 5 7021-8 #### HUBERT JANSEN ([id number]) [facility] (NI) [address] [place] [address] Eosinophils/100 WBC (Bld) 3.1 % Normal 0.0-6.[address] [facility] Comment on above: Performed By: #### 5 7021-8 #### HUBERT JANSEN ([id number]) [facility] (NI) [address] [place] [address] Erythrocyte distribution width (RBC) [Ratio] 12.5 % Normal 11.5-14.[address] [facility] Comment on above: Performed By: #### 5 7021-8 #### HUBERT JANSEN ([id number]) [facility] ([facility]) [address] [place] [address] Hematocrit (Bld) [Volume fraction] 46.6 % Normal 41.0-52.[address] [facility] Comment on above: Performed By: #### 5 7021-8 #### HUBERT JANSEN ([id number]) [facility] (NI) [address] [place] [address] Hemoglobin (Bld) [Mass/Vol] 16.3 g/dL Normal 13.5-17.[address] [facility] Comment on above: Performed By: #### 5 7021-8 #### HUBERT JANSEN ([id number]) [facility] (NI) [address] [place] [address] Immature granulocytes (Bld) [#/Vol] 0.01 x10*3/uL Normal 0.00-0.[address] [facility] Comment on above: Performed By: #### 5 7021-8 #### HUBERT JANSEN ([id number]) [facility] (NI) [address] [place] [address] Immature granulocytes/100 WBC (Bld) 0.2 % Normal 0.0-0.[address] [facility] Comment on above: Result Comment: Elisa ture Granulocyte Count (IG) includes promyelocytes, myelocytes and metamyelocytes but does not include bands. Percent differential counts (%) should be interpreted in the context of the absolute cell counts (cells/UL). Performed By: #### 5 7021-8 #### HUBERT JANSEN ([id number]) [facility] (NI) [address] [place] [address] Lymphocytes (Bld) [#/Vol] 1.89 x10*3/uL Normal 1.20-4.[address] [facility] Comment on above: Performed By: #### 5 7021-8 #### HUBERT JANSEN ([id number]) [facility] (NI) [address] [place] [address] Lymphocytes/100 WBC (Bld) 34.7 % Normal 13.0-44.[address] [facility] Comment on above: Performed By: #### 5 7021-8 #### HUBERT JANSEN ([id number]) [facility] (NI) [address] [place] [address] MCH (RBC) [Entitic mass] 29.7 pg Normal 26.0-34.[address] [facility] Comment on above: Performed By: #### 5 7021-8 #### HUBERT JANSEN ([id number]) [facility] (NI) [address] [place] [address] MCHC (RBC) [Mass/Vol] 35.0 g/dL Normal 32.0-36.0 [facility] Comment on above: Performed By: #### 5 7021-8 #### HUBERT JANSEN ([id number]) [facility] (NI) [address] [place] [address] MCV (RBC) [Entitic vol] 85 fL Normal 80-[address] [facility] Comment on above: Performed By: #### 5 7021-8 #### HUBERT Armstrong'EVIE ([id number]) [facility] (NI) [address] [place] [address] Monocytes (Bld) [#/Vol] 0.56 x10*3/uL Normal 0.10-1.[address] [facility] Comment on above: Performed By: #### 5 7021-8 #### HUBERT Armstrong'EVIE ([id number]) [facility] (NI) [address] [place] [address] Monocytes/100 WBC (Bld) 10.3 % Normal 2.0-10.[address] [facility] Comment on above: Performed By: #### 5 7021-8 #### HUBERT Armstrong'EVIE ([id number]) [facility] (NI) [address] [place] [address] Neutrophils (Bld) [#/Vol] 2.79 x10*3/uL Normal 1.20-7.[address] [facility] Comment on above: Result Comment: Perc ent differential counts (%) should be interpreted in the context of the absolute cell counts (cells/uL). Performed By: #### 5 7021-8 #### HUBERT JANSEN ([id number]) [facility] (NI) [address] [place] [address] Neutrophils/100 WBC (Bld) 51.3 % Normal 40.0-80.[address] [facility] Comment on above: Performed By: #### 5 7021-8 #### HUBERT Armstrong'EVIE ([id number]) [facility] (NI) [address] [place] [address] Nucleated RBC/100 WBC (Bld) [Ratio] 0.0 /100 WBCs Normal 0.0-0.[address] [facility] Comment on above: Performed By: #### 5 7021-8 #### HUBERT JANSEN ([id number]) [facility] (NI) [address] [place] [address] Platelets (Bld) [#/Vol] 218 x10*3/uL Normal 150-[address] [facility] Comment on above: Performed By: #### 5 7021-8 #### HUBERT JANSEN ([id number]) [facility] (NI) [address] [place] [address] RBC (Bld) [#/Vol] 5.49 x10*6/uL Normal 4.50-5.90 [facility] Comment on above: Performed By: #### 5 7021-8 #### HUBERT JANSEN ([id number]) [facility] (NI) [address] [place] [address] WBC (Bld) [#/Vol] 5.4 x10*3/uL Normal 4.4-11.3 [facility] Comment on above: Performed By: #### 5 7021-8 #### HUBRET JANSEN ([id number]) [facility] (NI) [address] [place] [address] Comprehensive metabolic 2000 panelon 12-02-2024 Albumin BCP dye [Mass/Vol] 4.7 g/dL 3.4 - 5.0 g/dL [facility] ALP [Catalytic activity/Vol] 42 U/L 33 - 120 U/L [facility] ALT With P-5'-P [Catalytic activity/Vol] 46 U/L 10 - 52 U/L [facility] Comment on above: Patients treated wit h Sulfasalazine may generate falsely decreased results for ALT. Anion gap [Moles/Vol] 13 mmol/L 10 - 2 0 mmol/L [facility] AST With P-5'-P [Catalytic activity/Vol] 27 U/L 9 - 39 U/L [facility] Bilirubin [Mass/Vol] 0.7 mg/dL 0.0 - 1 .2 mg/dL [facility] Calcium [Mass/Vol] 10 mg/dL 8.6 - 10. 3 mg/dL [facility] Chloride [Moles/Vol] 102 mmol/L 98 - 10 7 mmol/L [facility] CO2 [Moles/Vol] 29 mmol/L 21 - 32 mmol/L [facility] Creatinine [Mass/Vol] 0.88 mg/dL 0.50 - 1.30 mg/dL [facility] eGFR - PINF [facility] Comment on above: Calculations of rolando mated GFR are performed using the 2020 CKD-EPI Study Refit equation without the race variable for the IDMS-Traceable creatinine methods. https://jasn.asnjournals.org/content/early//ASN.77965 46747 Glucose [Mass/Vol] 116 mg/dL High 74 - 99 mg/dL [facility] Interpretation and review of laboratory results Abnormal [facility] Potassium [Moles/Vol] 4.7 mmol/L 3.5 - 5.3 mmol/L [facility] Protein [Mass/Vol] 7.9 g/dL 6.4 - 8.2 g/dL [facility] Sodium [Moles/Vol] 139 mmol/L 136 - 145 mmol/L [facility] Urea nitrogen [Mass/Vol] 14 mg/dL 6 - 23 mg/dL [facility] Albumin BCP dye [Mass/Vol] 4.7 g/dL Normal 3.4-5.[address] [facility] Comment on above: Performed By: #### 2 4323-8 #### HUBERT JANSEN ([id number]) [facility] (NI) [address] [place] [address] ALP [Catalytic activity/Vol] 42 U/L Normal 33-[address] [facility] Comment on above: Performed By: #### 2 4323-8 #### HUBERT JANSEN ([id number]) [facility] (NI) [address] [place] [address] ALT With P-5'-P [Catalytic activity/Vol] 46 U/L Normal 10-[address] [facility] Comment on above: Result Comment: Yaquelin ents treated with Sulfasalazine may generate falsely decreased results for ALT. Performed By: #### 2 4323-8 #### HUBERT O'EVIE ([id number]) [facility] (NI) [address] [place] [address] Anion gap [Moles/Vol] 13 mmol/L Normal 10-20 [facility] Comment on above: Performed By: #### 2 4323-8 #### HUBERT O'EVIE ([id number]) [facility] (NI) [address] [place] [address] AST With P-5'-P [Catalytic activity/Vol] 27 U/L Normal 9-[address] [facility] Comment on above: Performed By: #### 2 4323-8 #### HUBERT O'EVIE ([id number]) [facility] (NI) [address] [place] [address] Bilirubin [Mass/Vol] 0.7 mg/dL Normal 0.0-1.2 [facility] Comment on above: Performed By: #### 2 4323-8 #### HUBERT O'EVIE ([id number]) [facility] (NI) [address] [place] [address] Calcium [Mass/Vol] 10.0 mg/dL Normal 8.6-10.3 [facility] Comment on above: Performed By: #### 2 4323-8 #### HUBERT Armstrong'EVIE ([id number]) [facility] (NI) [address] [place] [address] Chloride [Moles/Vol] 102 mmol/L Normal 98-107 [facility] Comment on above: Performed By: #### 2 4323-8 #### HUBERT O'EVIE ([id number]) [facility] (NI) [address] [place] [address] CO2 [Moles/Vol] 29 mmol/L Normal 21-32 [facility] Comment on above: Performed By: #### 2 4323-8 #### HUBERT Armstrong'EVIE ([id number]) [facility] (NI) [address] [place] [address] Creatinine [Mass/Vol] 0.88 mg/dL Normal 0.50-1.30 [facility] Comment on above: Performed By: #### 2 4323-8 #### HUBERT Armstrong'EVIE ([id number]) [facility] (NI) [address] [place] [address] GFR/1.73 sq M.predicted MDRD (S/P/Bld) [Vol rate/Area] mL/min/{1.73_m2} Normal >[address] [facility] Comment on above: Result Comment: Calc ulations of estimated GFR are performed using the 2020 CKD-EPI Study Refit equation without the race variable for the IDMS-Traceable creatinine methods. https://jasn.asnjournals.org/content/early/ASN.14893 05874 Performed By: #### 2 4323-8 #### HUBERT Armstrong'EVIE ([id number]) [facility] (NI) [address] [place] [address] Glucose [Mass/Vol] 116 mg/dL High 74-99 [facility] Comment on above: Performed By: #### 2 4323-8 #### HUBERT Armstrong'EVIE ([id number]) [facility] (NI) [address] [place] [address] Potassium [Moles/Vol] 4.7 mmol/L Normal 3.5-5.3 [facility] Comment on above: Performed By: #### 2 4323-8 #### HUBERT Armstrong'EVIE ([id number]) [facility] (NI) [address] [place] [address] Protein [Mass/Vol] 7.9 g/dL Normal 6.4-8.2 [facility] Comment on above: Performed By: #### 2 4323-8 #### HUBERT JANSEN ([id number]) [facility] (NI) [address] [place] [address] Sodium [Moles/Vol] 139 mmol/L Normal 136-145 [facility] Comment on above: Performed By: #### 2 4323-8 #### HUBERT JANSEN ([id number]) [facility] (NI) [address] [place] [address] Urea nitrogen [Mass/Vol] 14 mg/dL Normal 6-[address] [facility] Comment on above: Performed By: #### 2 4323-8 #### HUBERT JANSEN ([id number]) [facility] (NI) [address] [place] [address] LDH Lactate to pyruvate reac tion [Catalytic activity/Vol]on 12-02-2024 Interpretation and review of laboratory results Normal [facility] Lactate dehydrogenaseon -2 LDH Lactate to pyruvate reaction [Catalytic activity/Vol] 142 U/L 84 - 246 U/L [facility] LDH Lactate to pyruvate reaction [Catalytic activity/Vol] 142 U/L Normal 84-[address] [facility] Comment on above: Performed By: #### 1 4804-9 #### HUBERT JANSEN ([id number]) [facility] (NI) [address] [place] [address] No Panel Informationon 12-02 [facility] CBC W/Diff, Automatedon 02-0 Absolute Lymph 2.15 X10 3/uL Normal 0.83-4.51 [facility] Comment on above: Order Comment: Order Date: 07/14/24 Order Info: 0184-1 - CBCD Performed By: #### L 500.4050, L100.0100, L500.4100 #### [facility] [address] [place], [place], [address] Absolute Neut 3.3 X10 3/uL Normal 2.0-7.7 [facility] Comment on above: Order Comment: Order Date: 07/14/24 Order Info: 0184-1 - CBCD Performed By: #### L 500.4050, L100.0100, L500.4100 #### [facility] [address] [place], [address] Basophils/100 WBC (Bld) 1.1 % High 0-1 [facility] Comment on above: Order Comment: Order Date: 07/14/24 Order Info: 0184-1 - CBCD Performed By: #### L 500.4050, L100.0100, L500.4100 #### [facility] [address] [place], [address] Eosinophils/100 WBC (Bld) 3.8 % Normal 0-5 [facility] Comment on above: Order Comment: Order Date: 07/14/24 Order Info: 0184-1 - CBCD Performed By: #### L 500.4050, L100.0100, L500.4100 #### [facility] [address] [place], [address] Erythrocyte distribution width (RBC) [Ratio] 12.7 % Normal 11.6-14.6 [facility] Comment on above: Order Comment: Order Date: 07/14/24 Order Info: 0184-1 - CBCD Performed By: #### L 500.4050, L100.0100, L500.4100 #### [facility] [address] [place], [address] Hematocrit (Bld) [Volume fraction] 41.3 % Normal 40-54 [facility] Comment on above: Order Comment: Order Date: 07/14/24 Order Info: 0184-1 - CBCD Performed By: #### L 500.4050, L100.0100, L500.4100 #### [facility] [address] [place], [address] Hemoglobin (Bld) [Mass/Vol] 14.5 g/dL Normal 13.0-16.5 [facility] Comment on above: Order Comment: Order Date: 07/14/24 Order Info: 0184-1 - CBCD Performed By: #### L 500.4050, L100.0100, L500.4100 #### [facility] [address] [place], [address] IG% 0.300 Normal 0.0-0.9 [facility] Comment on above: Order Comment: Order Date: 07/14/24 Order Info: 0184- - CBCD Result Comment: IG% - Immature Granulocytes (promyelocytes, myelocytes and metamyelocytes) > 1% indicates that a LEFT SHIFT is Present. Performed By: #### L 500.4050, L100.0100, L500.4100 #### [facility] [address] [place], [address] Lymphocytes/100 WBC (Bld) 34.2 % Normal 19-41 [facility] Comment on above: Order Comment: Order Date: 07/14/24 Order Info: 0184- - CBCD Performed By: #### L 500.4050, L100.0100, L500.4100 #### [facility] [address] [place], [address] MCH (RBC) [Entitic mass] 29.5 pg Normal 27.0-32.0 [facility] Comment on above: Order Comment: Order Date: 07/14/24 Order Info: 0184- - CBCD Performed By: #### L 500.4050, L100.0100, L500.4100 #### [facility] [address] [place], [address] MCHC (RBC) [Mass/Vol] 35.1 g/dL Normal 32-36 [facility] Comment on above: Order Comment: Order Date: 07/14/24 Order Info: 0184- - CBCD Performed By: #### L 500.4050, L100.0100, L500.4100 #### [facility] [address] [place], [address] MCV (RBC) [Entitic vol] 83.9 fL Normal 80-94 [facility] Comment on above: Order Comment: Order Date: 07/14/24 Order Info: 0184-1 - CBCD Performed By: #### L 500.4050, L100.0100, L500.4100 #### [facility] [address] [place], [address] Monocytes/100 WBC (Bld) 8.6 % Normal 0-10 [facility] Comment on above: Order Comment: Order Date: 07/14/24 Order Info: 0184-1 - CBCD Performed By: #### L 500.4050, L100.0100, L500.4100 #### [facility] [address] [place], [address] Neutrophils/100 WBC (Bld) 52.0 % Normal 47-70 [facility] Comment on above: Order Comment: Order Date: 07/14/24 Order Info: 0184-1 - CBCD Performed By: #### L 500.4050, L100.0100, L500.4100 #### [facility] [address] [place], [address] Nucleated RBC (Bld) [#/Vol] 0 10*3/uL Normal 0-5 [facility] Comment on above: Order Comment: Order Date: 07/14/24 Order Info: 0184-1 - CBCD Performed By: #### L 500.4050, L100.0100, L500.4100 #### [facility] [address] [place], [address] Platelet mean volume (Bld) [Entitic vol] 9.4 fL Normal 6.2-12.0 [facility] Comment on above: Order Comment: Order Date: 07/14/24 Order Info: 0184-1 - CBCD Performed By: #### L 500.4050, L100.0100, L500.4100 #### [facility] [address] [place], [address] Platelets (Bld) [#/Vol] 238 10*3/uL Normal 150-450 [facility] Comment on above: Order Comment: Order Date: 07/14/24 Order Info: 0184-1 - CBCD Performed By: #### L 500.4050, L100.0100, L500.4100 #### [facility] [address] [place], [address] RBC (Bld) [#/Vol] 4.92 10*6/uL Normal 4.6-6.2 [facility] Comment on above: Order Comment: Order Date: 07/14/24 Order Info: 0184-1 - CBCD Performed By: #### L 500.4050, L100.0100, L500.4100 #### [facility] [address] [place], [address] RDW SD 38.2 fl Normal 35.1-43.9 [facility] Comment on above: Order Comment: Order Date: 07/14/24 Order Info: 0184-1 - CBCD Performed By: #### L 500.4050, L100.0100, L500.4100 #### [facility] [address] [place], [address] WBC (Bld) [#/Vol] 6.3 10*3/uL Normal 4.4-11.0 [facility] Comment on above: Order Comment: Order Date: 07/14/24 Order Info: 0184-1 - CBCD Performed By: #### L 500.4050, L100.0100, L500.4100 #### [facility] [address] [place], [address] Comprehensive Metabolic Prof ilon 07-18-2024 Albumin [Mass/Vol] 4.1 g/dL Normal 3.2-5.0 [facility] Comment on above: Order Comment: Order Date: 07/14/24 Order Info: [id number] - CMP Order Info: [id number] - LIPID Performed By: #### L 500.4050, L100.0100, L500.4100 #### [facility] [address] [place], [address] Albumin/Globulin [Mass ratio] 1.2 {ratio} Normal 0.9-2.4 [facility] Comment on above: Order Comment: Order Date: 07/14/24 Order Info: [id number] - CMP Order Info: [id number] - LIPID Performed By: #### L 500.4050, L100.0100, L500.4100 #### [facility] [address] [place], [address] ALK P 45 U/L Normal 45-117 [facility] Comment on above: Order Comment: Order Date: 07/14/24 Order Info: [id number] - CMP Order Info: [id number] - LIPID Performed By: #### L 500.4050, L100.0100, L500.4100 #### [facility] [address] [place], [address] ALT [Catalytic activity/Vol] 55 U/L Normal 16-61 [facility] Comment on above: Order Comment: Order Date: 07/14/24 Order Info: [id number] - CMP Order Info: [id number] - LIPID Performed By: #### L 500.4050, L100.0100, L500.4100 #### [facility] [address] [place], [address] AST [Catalytic activity/Vol] 26 U/L Normal 15-37 [facility] Comment on above: Order Comment: Order Date: 07/14/24 Order Info: [id number] - CMP Order Info: [id number] - LIPID Performed By: #### L 500.4050, L100.0100, L500.4100 #### [facility] [address] [place], [address] Bilirubin [Mass/Vol] 0.60 mg/dL Normal 0.20-1.00 [facility] Comment on above: Order Comment: Order Date: 07/14/24 Order Info: [id number] - CMP Order Info: [id number] - LIPID Result Comment: For patients on eltrombopag therapy, use of Dimension [place] TBIL is not recommended. Performed By: #### L 500.4050, L100.0100, L500.4100 #### [facility] [address] [place], [address] BUN/CRE 8.8 RATIO Low 10-20 [facility] Comment on above: Order Comment: Order Date: 07/14/24 Order Info: [id number] - CMP Order Info: [id number] - LIPID Performed By: #### L 500.4050, L100.0100, L500.4100 #### [facility] [address] [place], [address] CA,Total 9.3 mg/dL Normal 8.5-10.1 [facility] Comment on above: Order Comment: Order Date: 07/14/24 Order Info: [id number] - CMP Order Info: [id number] - LIPID Performed By: #### L 500.4050, L100.0100, L500.4100 #### [facility] [address] [place], [address] Chloride [Moles/Vol] 102 mmol/L Normal 98-107 [facility] Comment on above: Order Comment: Order Date: 07/14/24 Order Info: [id number] - CMP Order Info: [id number] - LIPID Performed By: #### L 500.4050, L100.0100, L500.4100 #### [facility] [address] [place], [address] CO2 [Moles/Vol] 27.0 mmol/L Normal 21.0-32.0 [facility] Comment on above: Order Comment: Order Date: 07/14/24 Order Info: [id number] - CMP Order Info: [id number] - LIPID Performed By: #### L 500.4050, L100.0100, L500.4100 #### [facility] [address] [place], [address] Creatinine [Mass/Vol] 1.02 mg/dL Normal 0.70-1.30 [facility] Comment on above: Order Comment: Order Date: 07/14/24 Order Info: [id number] - CMP Order Info: [id number] - LIPID Result Comment: The validity of the calculated GFR GFRAA in patients over 70 years has not been determined. Clinical correlation is essential. Performed By: #### L 500.4050, L100.0100, L500.4100 #### [facility] [address] [place], [address] EST GFR - AA 108 mL/min Normal >60 [facility] Comment on above: Order Comment: Order Date: 07/14/24 Order Info: [id number] - CMP Order Info: [id number] - LIPID Result Comment: Afri can Ukrainian GFR Calc Performed By: #### L 500.4050, L100.0100, L500.4100 #### [facility] [address] [place], [address] GAP 7 Normal 5-15 [facility] Comment on above: Order Comment: Order Date: 07/14/24 Order Info: [id number] - CMP Order Info: [id number] - LIPID Performed By: #### L 500.4050, L100.0100, L500.4100 #### [facility] [address] [place], [address] GFR/1.73 sq M.predicted among non-blacks MDRD (S/P/Bld) [Vol rate/Area] 89 mL/min/{1.73_m2} Normal >60 [facility] Comment on above: Order Comment: Order Date: 07/14/24 Order Info: [id number] - CMP Order Info: [id number] - LIPID Result Comment: Non- GFR Calc Performed By: #### L 500.4050, L100.0100, L500.4100 #### [facility] [address] [place], [address] Globulin (S) [Mass/Vol] 3.5 g/dL Normal 2.2-4.2 [facility] Comment on above: Order Comment: Order Date: 07/14/24 Order Info: [id number] - CMP Order Info: [id number] - LIPID Performed By: #### L 500.4050, L100.0100, L500.4100 #### [facility] [address] [place], [address] Glucose [Mass/Vol] 79 mg/dL Normal 74-106 [facility] Comment on above: Order Comment: Order Date: 07/14/24 Order Info: [id number] - CMP Order Info: [id number] - LIPID Performed By: #### L 500.4050, L100.0100, L500.4100 #### [facility] [address] [place], [address] Potassium [Moles/Vol] 3.9 mmol/L Normal 3.5-5.1 [facility] Comment on above: Order Comment: Order Date: 07/14/24 Order Info: [id number] - CMP Order Info: [id number] - LIPID Performed By: #### L 500.4050, L100.0100, L500.4100 #### [facility] [address] [place], [address] Sodium [Moles/Vol] 136 mmol/L Normal 136-145 [facility] Comment on above: Order Comment: Order Date: 07/14/24 Order Info: [id number] - CMP Order Info: [id number] - LIPID Performed By: #### L 500.4050, L100.0100, L500.4100 #### [facility] [address] [place], [address] T PROT 7.6 g/dL Normal 6.4-8.2 [facility] Comment on above: Order Comment: Order Date: 07/14/24 Order Info: [id number] - CMP Order Info: [id number] - LIPID Performed By: #### L 500.4050, L100.0100, L500.4100 #### [facility] [address] [place], [address] Urea nitrogen [Mass/Vol] 9 mg/dL Normal 7-18 [facility] Comment on above: Order Comment: Order Date: 07/14/24 Order Info: [id number] - CMP Order Info: [id number] - LIPID Performed By: #### L 500.4050, L100.0100, L500.4100 #### [facility] [address] [place], [address] Lipid Profileon 07-18-2024 Cholesterol [Mass/Vol] 164 mg/dL Normal 200 [facility] Comment on above: Order Comment: Order Date: 07/14/24 Order Info: [id number] - CMP Order Info: [id number] - LIPID Result Comment: <200 mg/dL Desirable 200-240 mg/dL Borderline >240 mg/dL High Risk Performed By: #### L 500.4050, L100.0100, L500.4100 #### [facility] [address] [place], [address] Cholesterol in HDL [Mass/Vol] 43 mg/dL Normal [facility] Comment on above: Order Comment: Order Date: 07/14/24 Order Info: [id number] - CMP Order Info: [id number] - LIPID Result Comment: The drugs N-Acetylcysteine and Metamizole may falsely depress this assay. Reference Range HDL <40 mg/dL Low HDL Cholesterol HDL >or= 60 mg/dL High HDL Cholesterol Performed By: #### L 500.4050, L100.0100, L500.4100 #### [facility] [address] [place], [address] Cholesterol in LDL [Mass/Vol] 111 mg/dL Normal 0-130 [facility] Comment on above: Order Comment: Order Date: 07/14/24 Order Info: [id number] - CMP Order Info: [id number] - LIPID Performed By: #### L 500.4050, L100.0100, L500.4100 #### [facility] [address] [place], [address] Cholesterol in VLDL [Mass/Vol] 10 mg/dL Normal 5-40 [facility] Comment on above: Order Comment: Order Date: 07/14/24 Order Info: [id number] - CMP Order Info: [id number] - LIPID Performed By: #### L 500.4050, L100.0100, L500.4100 #### [facility] [address] [facility] [place], [address] Triglyceride [Mass/Vol] 52 mg/dL Normal [facility] Comment on above: Order Comment: Order Date: 07/14/24 Order Info: [id number] - CMP Order Info: [id number] - LIPID Result Comment: The drugs N-Acetylcysteine and Metamizole may falsely depress this assay. Serum Triglycerides Reference Interval Normal <150 mg/dL Borderline high 150 - 199 mg/dL High 200 - 499 mg/dL Very High > or = 500 mg/dL Performed By: #### L 500.4050, L100.0100, L500.4100 #### [facility] [address] [place], [address] CBC W Auto Differential pane l (Bld)on 05-15-2023 Basophils (Bld) [#/Vol] 0.03 10*3/uL [facility] Basophils/100 WBC (Bld) 0.4 % 0.0 - 2.0 % [facility] Eosinophils (Bld) [#/Vol] 0.17 10*3/uL [facility] Eosinophils/100 WBC (Bld) 2.2 % 0.0 - 6.0 % [facility] Erythrocyte distribution width (RBC) [Ratio] 12.3 % 11.5 - 14.5 % [facility] Hematocrit (Bld) [Volume fraction] 44.9 % 41.0 - 52.0 % [facility] Hemoglobin (Bld) [Mass/Vol] 15.8 g/dL 13.5 - 17.5 g/dL [facility] Immature granulocytes (Bld) [#/Vol] 0.02 10*3/uL [facility] Immature granulocytes/100 WBC (Bld) 0.3 % 0.0 - 0.9 % [facility] Comment on above: Immature Granulocyte Count (IG) includes promyelocytes, myelocytes and metamyelocytes but does not include bands. Percent differential counts (%) should be interpreted in the context of the absolute cell counts (cells/UL). Lymphocytes (Bld) [#/Vol] 1.45 10*3/uL [facility] Lymphocytes/100 WBC (Bld) 19.1 % 13.0 - 44.0 % [facility] MCH (RBC) [Entitic mass] 29.6 pg 26.0 - 34.0 pg [facility] MCHC (RBC) [Mass/Vol] 35.2 g/dL 32.0 - 36.0 g/dL [facility] MCV (RBC) [Entitic vol] 84 fL 80 - 100 fL [facility] Monocytes (Bld) [#/Vol] 0.88 10*3/uL [facility] Monocytes/100 WBC (Bld) 11.6 % 2.0 - 10.0 % [facility] Neutrophils (Bld) [#/Vol] 5.06 10*3/uL [facility] Comment on above: Percent differential counts (%) should be interpreted in the context of the absolute cell counts (cells/uL). Neutrophils/100 WBC (Bld) 66.4 % 40.0 - 80.0 % [facility] Nucleated RBC/100 WBC (Bld) [Ratio] 0.0 % [facility] Platelets (Bld) [#/Vol] 201 10*3/uL [facility] RBC (Bld) [#/Vol] 5.33 10*6/uL [facility] WBC (Bld) [#/Vol] 7.6 10*3/uL [facility] Comprehensive metabolic 2000 panelon 05-15-2023 Albumin BCP dye [Mass/Vol] 4.7 g/dL 3.4 - 5.0 g/dL [facility] ALP [Catalytic activity/Vol] 47 U/L 33 - 120 U/L [facility] ALT With P-5'-P [Catalytic activity/Vol] 55 U/L High 10 - 52 U/L [facility] Comment on above: Patients treated wit h Sulfasalazine may generate falsely decreased results for ALT. Anion gap [Moles/Vol] 10 mmol/L 10 - 2 0 mmol/L [facility] AST With P-5'-P [Catalytic activity/Vol] 23 U/L 9 - 39 U/L [facility] Bilirubin [Mass/Vol] 0.4 mg/dL 0.0 - 1 .2 mg/dL [facility] Calcium [Mass/Vol] 10.1 mg/dL 8.6 - 10. 3 mg/dL [facility] Chloride [Moles/Vol] 104 mmol/L 98 - 10 7 mmol/L [facility] CO2 [Moles/Vol] 30 mmol/L 21 - 32 mmol/L [facility] Creatinine [Mass/Vol] 0.86 mg/dL 0.50 - 1.30 mg/dL [facility] GFR/1.73 sq M.predicted MDRD (S/P/Bld) [Vol rate/Area] - PINF [facility] Comment on above: Calculations of rolando mated GFR are performed using the 2020 CKD-EPI Study Refit equation without the race variable for the IDMS-Traceable creatinine methods. https://jasn.asnjournals.org/content//ASN.34248 37177 Glucose [Mass/Vol] 80 mg/dL 74 - 99 mg/dL [facility] Interpretation and review of laboratory results Abnormal [facility] Potassium [Moles/Vol] 4.5 mmol/L 3.5 - 5.3 mmol/L [facility] Protein [Mass/Vol] 7.9 g/dL 6.4 - 8.2 g/dL [facility] Sodium [Moles/Vol] 139 mmol/L 136 - 145 mmol/L [facility] Urea nitrogen [Mass/Vol] 14 mg/dL 6 - 23 mg/dL [facility] LDH Lactate to pyruvate reac tion [Catalytic activity/Vol]on 05-15-2023 Interpretation and review of laboratory results Normal [facility] Lactate dehydrogenaseon LDH Lactate to pyruvate reaction [Catalytic activity/Vol] 137 U/L 84 - 246 U/L [facility] CBC AND DIFFERENTIALon 11-14 % AUTOMATED IMMATURE GRAN 0.3 % Normal 0.0 - 0.9 [facility] Comment on above: Result Comment: Elisa ture Granulocyte Count (IG) includes promyelocytes, myelocytes and metamyelocytes but does not include bands. Percent differential counts (%) should be interpreted in the context of the absolute cell counts (cells/L). Performed By: #### C BCDF #### [facility] [address] [place] [address] Basophils (Bld) [#/Vol] 0.03 10*3/uL Normal 0.00 - 0.10 [facility] Comment on above: Performed By: #### C BCDF #### [facility] [address] [place] [address] Basophils/100 WBC (Bld) 0.5 % Normal 0.0 - 2.0 [facility] Comment on above: Performed By: #### C BCDF #### [facility] [address] [place] [address] Eosinophils (Bld) [#/Vol] 0.15 10*3/uL Normal 0.00 - 0.70 [facility] Comment on above: Performed By: #### C BCDF #### [facility] [address] [place] [address] Eosinophils/100 WBC (Bld) 2.6 % Normal 0.0 - 6.0 [facility] Comment on above: Performed By: #### C BCDF #### [facility] [address] [place] [address] Erythrocyte distribution width (RBC) [Ratio] 12.8 % Normal 11.5 - 14.5 [facility] Comment on above: Performed By: #### C BCDF #### [facility] [address] [place] [address] Hematocrit (Bld) [Volume fraction] 43.6 % Normal 41.0 - 52.0 [facility] Comment on above: Performed By: #### C BCDF #### [facility] [address] [place] [address] Hemoglobin (Bld) [Mass/Vol] 15.3 g/dL Normal 13.5 - 17.5 [facility] Comment on above: Performed By: #### C BCDF #### [facility] [address] [place] [address] Lymphocytes (Bld) [#/Vol] 1.69 10*3/uL Normal 1.20 - 4.80 [facility] Comment on above: Performed By: #### C BCDF #### [facility] [address] [place] [address] Lymphocytes/100 WBC (Bld) 29.4 % Normal 13.0 - 44.0 [facility] Comment on above: Performed By: #### C BCDF #### [facility] [address] [place] [address] MCHC (RBC) [Mass/Vol] 35.1 g/dL Normal 32.0 - 36.0 [facility] Comment on above: Performed By: #### C BCDF #### [facility] [address] [place] [address] MCV (RBC) [Entitic vol] 84 fL Normal 80 - 100 [facility] Comment on above: Performed By: #### C BCDF #### [facility] [address] [place] [address] Monocytes (Bld) [#/Vol] 0.60 10*3/uL Normal 0.10 - 1.00 [facility] Comment on above: Performed By: #### C BCDF #### [facility] [address] [place] [address] Monocytes/100 WBC (Bld) 10.5 % Normal 2.0 - 10.0 [facility] Comment on above: Performed By: #### C BCDF #### [facility] [address] [place] [address] Neutrophils (Bld) [#/Vol] 3.25 10*3/uL Normal 1.20 - 7.70 [facility] Comment on above: Performed By: #### C BCDF #### [facility] [address] [place] [address] Neutrophils/100 WBC (Bld) 56.7 % Normal 40.0 - 80.0 [facility] Comment on above: Performed By: #### C BCDF #### [facility] [address] [place] [address] Platelets (Bld) [#/Vol] 211 10*3/uL Normal 150 - 450 [facility] Comment on above: Performed By: #### C BCDF #### [facility] [address] [place] [address] RBC 5.20 x10E12/L Normal 4.50 - 5.90 [facility] Comment on above: Performed By: #### C BCDF #### [facility] [address] [place] [address] WBC (Bld) [#/Vol] 5.7 10*3/uL Normal 4.4 - 11.3 [facility] Comment on above: Performed By: #### C BCDF #### [facility] [address] [place] [address] COMPREHENSIVE PANELon 2022 Albumin [Mass/Vol] 4.6 g/dL Normal 3.4 - 5.0 [facility] Comment on above: Performed By: #### C MP #### [facility] [address] [place] [address] ALP [Catalytic activity/Vol] 39 U/L Normal 33 - 120 [facility] Comment on above: Performed By: #### C MP #### [facility] [address] [place] [address] ALT [Catalytic activity/Vol] 34 U/L Normal 10 - 52 [facility] Comment on above: Result Comment: Yaquelin ents treated with Sulfasalazine may generate falsely decreased results for ALT. Performed By: #### C MP #### [facility] [address] [place] [address] Anion gap [Moles/Vol] 12 mmol/L Normal 10 - 20 [facility] Comment on above: Performed By: #### C MP #### [facility] [address] [place] [address] AST [Catalytic activity/Vol] 19 U/L Normal 9 - 39 [facility] Comment on above: Performed By: #### C MP #### [facility] [address] [place] [address] Bilirubin [Mass/Vol] 0.6 mg/dL Normal 0.0 - 1.2 [facility] Comment on above: Performed By: #### C MP #### [facility] [address] [place] [address] Calcium [Mass/Vol] 9.9 mg/dL Normal 8.6 - 10.3 [facility] Comment on above: Performed By: #### C MP #### [facility] [address] [place] [address] Chloride [Moles/Vol] 103 mmol/L Normal 98 - 107 [facility] Comment on above: Performed By: #### C MP #### [facility] [address] [place] [address] Creatinine [Mass/Vol] 0.79 mg/dL Normal 0.50 - 1.30 [facility] Comment on above: Performed By: #### C MP #### [facility] [address] [place] [address] eGFR MALE >90 Normal >90 [facility] Comment on above: Result Comment: CALC ULATIONS OF ESTIMATED GFR ARE PERFORMED USING THE 2020 CKD-EPI STUDY REFIT EQUATION WITHOUT THE RACE VARIABLE FOR THE IDMS-TRACEABLE CREATININE METHODS. https://jasn.asnjournals.org/content//ASN.23013 16530 Performed By: #### C MP #### [facility] [address] [place] [address] Glucose [Mass/Vol] 93 mg/dL Normal 74 - 99 [facility] Comment on above: Performed By: #### C MP #### [facility] [address] [place] [address] HCO3 (Bld) [Moles/Vol] 28 mmol/L Normal 21 - 32 [facility] Comment on above: Performed By: #### C MP #### [facility] [address] [place] [address] Potassium [Moles/Vol] 4.4 mmol/L Normal 3.5 - 5.3 [facility] Comment on above: Performed By: #### C MP #### [facility] [address] [place] [address] Protein [Mass/Vol] 7.9 g/dL Normal 6.4 - 8.2 [facility] Comment on above: Performed By: #### C MP #### [facility] [address] [place] [address] Sodium [Moles/Vol] 139 mmol/L Normal 136 - 145 [facility] Comment on above: Performed By: #### C MP #### [facility] [address] [place] [address] Urea nitrogen [Mass/Vol] 11 mg/dL Normal 6 - 23 [facility] Comment on above: Performed By: #### C MP #### [facility] [address] [place] [address] Clinic Note - Heme Onc-Follo w Up Visiton 11-14-2022 Clinic Note - Heme Onc-Follow Up Visit Patient Visit Information: Visit Type: Follow Up Visit Cancer History: Treatment History: Mr. Parish Raza is a 31 yo WM that was admitted to [facility] for excisional LN biopsy of R neck mass with FNA biopsy which showed c myc+ Burkitts lymphoma. Pt referred to Dr. Uriel Obrien at [facility] by Dr. Farmer for biopsy and further evaluation and treatment. Biopsy performed on 04/22/19 revealed CD20, CD10, BCL6, MYC and CD43 with 100% KI-67 and c-myc translocated. A Pet/CT on 04/25/19 showed hypermetabolic intensity in R neck mass, hypermetabolic supraclavicular LNs, symmetric oropharyngeal tonsil activity, diffuse metabolic activity throughout the bone marrow, and no hypermetabolic LAD below the diaphragm. A bone marrow biopsy on 04/27 was performed and was negative for lymphoma. He was started on Walker regimen CODOX-M ( Cytoxan, doxorubicin, vincristine and methotrexate). Two LPs were done while inpatient for intrathecal mtx and were negative for disease. He was discharged and received outpatient neulasta on 05/10. cycle #2 IVAC given on 05/24, neulasta on 05/31 Cycle #3 1/3 CODOX M cycle #4 IVAC planned for 07/18 PET/CT shows complete remission August 2019 History of Present Illness: ID Statement: PARISH RAZA is a 31 year old Male Chief Complaint: follow up Burkitt's lymphoma Interval History: Mr. Parish Raza is a 31 yo WM diagnosis of stage II Burkitt's lymphoma. He is s/p 4 cycles of Walker regimen. He is in a complete remission. Since his last visit, he has been feeling well. 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 He is busy with his 2 children. Has occasional RLQ discomfort with urination but this does not persist. No longer experiencing vertigo. Has pain in his L elbow, shoulder. Was lifting heavy logs a few days ago. No fever, chills or night sweats. He has a good level of energy. Weight is stable. Review of Systems: ConstitutionalNEGATIVE : Fever, Chills, Anorexia, Weight Loss, Malaise EyesNEGATIVE: Blurry Vision, Drainage, Diploplia, Redness, Vision Loss/ Change ENMTNEGATIVE: Nasal Discharge, Nasal Congestion, Ear Pain, Mouth Pain, Throat Pain RespiratoryNEGATIVE: Dry Cough, Productive Cough, Hemoptysis, Wheezing, Shortness of Breath CardiologyNEGATIVE: Chest Pain, Dyspnea on Exertion, Orthopnea, Palpitations, Syncope GastrointestinalNEGATI VE: Abdominal Pain, Constipation, Diarrhea, Nausea, Vomiting GenitourinaryNEGATIVE: Discharge, Dysuria, Flank Pain, Frequency, Hematuria MusculoskeletalNEGATIV E: Decreased ROM, Pain, Swelling, Stiffness, Weakness NeurologicalNEGATIVE: Dizziness, Confusion, Headache, Seizures, Syncope PsychiatricNEGATIVE: Mood Changes, Anxiety, Hallucinations, Sleep Changes, Suicidal Ideas SkinNEGATIVE: Mass, Pain, Pruritus, Rash, Ulcer EndocrineNEGATIVE: Heat Intolerance, Cold Intolerance, Sweat, Polyuria, Thirst Hematologic/LymphNEGAT HUGO: Anemia, Bruising, Easy Bleeding, Night Sweats, Petechiae Allergic/ImmunologicNE GATIVE: Anaphylaxis, Itchy/ Teary Eyes, Itching, Sneezing, Swelling BreastNEGATIVE: Pain, Mass, Discharge, Nipple Itching, Gynecomastia Allergies and Intolerances: Allergies: No Known Allergies: Active Outpatient Medication Profile: * No Current Medications as of 14-Nov-2022 14:24 documented in Structured Notes Medical History: Confusion: ICD-10: R41.0, Status: Active Memory loss: ICD-10: R41.3, Status: Active Burkitt lymphoma: ICD-10: C83.70, Status: Active 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, Status: Active Social History: Social Substance History: Smoking Statusnever smoker Additional History never smoker, never drinker (1) Performance: ECOG Performance Status: 0 Fully Active Vitals and Measurements: Vitals: Temp: 36.5 HR: 75 RR: 17 BP: 133/73 SPO2%: 97 Measurements: HT(cm): 185.4 WT(kg): 106.7 BSA: 2.34 BMI: 31 Last 3 Weights & Heights: Date: Weight/Scale Type:Height: 14-Nov-2022 11:53783.7 kg 185.4 cm 16-May-2022 11:83464.8 kg 185.4 cm Physical Exam: Constitutional: Well developed, awake/alert/oriented x3, no distress, alert and cooperative Eyes: PERRL, EOMI, clear sclera ENMT: mucous membranes moist, no apparent injury, no lesions seen Head/Neck: Neck supple, no apparent injury, thyroid without mass or tenderness, No JVD, trachea midline, no bruits Respiratory/Thorax: Patent airways, CTAB, normal breath sounds with good chest expansion, thorax symmetric Cardiovascular: Regular, rate and rhythm, no murmurs, 2+ equal pulses of the extremities, normal S 1and S 2 Gastrointestinal: Nondistended, soft, non-tender, no rebound tenderness or guarding, no masses palpable, no organomegaly, +BS, no bruits Musculoskeletal: ROM intact, no joint swelling, normal strength Extremities: normal extremities, no cyanosis edema, contusions or wounds, no clubbing (more content not included)... Normal [facility] Clinic Note - Intakeon 11-14 Clinic Note - Intake Patient Visit Information: Visit TypeFollow Up Visit Source of Informationpatient Vital Signs: Temp (degrees C)36.5 degrees C Temperatureskin Heart Rate (beats/min)75 beats per minute Respiration (breaths/min)17 breath per minute BP Systolic (mm Hg)133 mmHg BP Diastolic (mm Hg)73 mmHg BP Mean (mm Hg)93 mmHg Height in cm185.4 centimeter(s) Height Methodmeasured Heightstanding Weight in kg106.7 kilogram(s) Weightstanding BMI (kg/m2)31 kg/M2 BSA (m2)2.34 M2 Last 3 Weights & HeightsDate: Weight/Scale Type:Height: 16-May-2022 11:12191.8 kg 185.4 cm SpO2 (%)97 % SpO2 Patient Onroom air Pain Screening: Patient States Painno (0) Allergies: No Known Allergies: Active Outpatient Medication Profile: * No Current Medications as of 16-May-2022 12:15 documented in Structured Notes Notification: NotificationsAll annual screens currently due. Travel History: COVID-19 Screening Completedno exposure or symptoms Travel or ExposureNO travel to International locations in the past 30 days Falls: Have you fallen in the last 6 monthsno Do you have a fear of fallingno Do you feel you need assistanceno Is the patient using an assistive deviceno Electronic Signatures: Luann Higginbotham (PCNA) (Signed 14-Nov-2022 11:27) Authored: Patient Visit Information, Vital Signs, Allergies, Notification, Travel History, Falls Last Updated: 14-Nov-2022 11:27 by Luann Higginbotham (PCNA) Normal [facility] LDHon 11-14-2022 LDH 142 U/L Normal 84 - 246 [facility] Comment on above: Performed By: #### L DH ####[facility] [id number] [place] [address] MAGNESIUMon 11-14-2022 Magnesium [Mass/Vol] 1.97 mg/dL Normal 1.60 - 2.40 [facility] Comment on above: Performed By: #### M G ####[facility] [id number] [place] [address] URIC ACIDon 11-14-2022 Urate [Mass/Vol] 4.9 mg/dL Normal 4.0 - 7.5 [facility] Comment on above: Result Comment: Cassandra puncture immediately after or during the administration of Metamizole may lead to falsely low results. Testing should be performed immediately prior to Metamizole dosing. Performed By: #### U EDY #### [facility] [address] [place] [address] Absolute lymphocyte countOrd ered By: Fannie Guzman on 08-04-2022 Lymphocytes Auto (Unsp spec) [#/Vol] 1.39 10*3/uL 0.83-4.51 [facility] Basophil percentageOrdered B y: Fannie Guzman on 08-04-2022 Basophils/100 WBC (Bld) 0.4 % 0-1 [facility] Bilirubin [Mass/Vol] 0.20 mg/dL 0.20-1.00 [facility] Comment on above: For patients on eltr ombopag therapy, use of Dimension [place] TBIL is not recommended. Chloride [Moles/Vol] 109 mmol/L 98-107 [facility] Eosinophils/100 WBC (Bld) 2.7 % 0-5 [facility] Glucose [Mass/Vol] 114 mg/dL 74-106 [facility] Comment on above: Fasting Glucose resu lt from 100 to 125 mg/dL suggests IMPAIRED HOMEOSTASIS per A.D.A. criteria. Neutrophils (Bld) [#/Vol] 2.8 10*3/uL 2.0-7.7 [facility] Neutrophils/100 WBC (Bld) 58.7 % 47-70 [facility] Potassium [Moles/Vol] 3.6 mmol/L 3.5-5.1 [facility] Protein [Mass/Vol] 7.5 g/dL 6.4-8.2 [facility] Sodium [Moles/Vol] 141 mmol/L 136-145 [facility] WBC (Bld) [#/Vol] 4.8 10*3/uL 4.4-11.0 [facility] Blood erythrocytes count (nu mber/volume)Ordered By: Fannie Guzman on 08-04-2022 RBC (Bld) [#/Vol] 4.90 10*6/uL 4.6-6.2 [facility] Blood hemoglobin measurement (mass/volume)Ordered By: Fannie Guzman on 08-04-2022 Hemoglobin (Bld) [Mass/Vol] 14.0 g/dL 13.0-16.5 [facility] Blood lymphocytes/100 leukoc ytesOrdered By: Fannie Stataylinoulos on 08-04-2022 Lymphocytes/100 WBC (Bld) 29.0 % 19-41 [facility] Blood monocytes/100 leukocyt esOrdered By: Fannie Stataylinoulos on 08-04-2022 Monocytes/100 WBC (Bld) 9.0 % 0-10 [facility] Blood platelet mean volumeOr dered By: Fannie Stataylinoulos on 08-04-2022 Platelet mean volume (Bld) [Entitic vol] 8.9 fL 6.2-12.0 [facility] Determination of erythrocyte mean corpuscular volume (MCV)Ordered By: Fannie Guzman on 08-04-2022 MCV (RBC) [Entitic vol] 84.7 fL 80-94 [facility] Hematocrit Auto (Bld) [Volum e fraction]Ordered By: Fannie Guzman on 08-04-2022 Hematocrit (Bld) [Volume fraction] 41.5 % 40-54 [facility] Laboratory - Chemistry and C hemistry - challengeOrdered By: Fannie Guzman on 08-04-2022 ALP [Catalytic activity/Vol] 55 U/L 45-117 [facility] ALT [Catalytic activity/Vol] 31 U/L 16-61 [facility] CO2 [Moles/Vol] 27.0 mmol/L 21.0-32.0 [facility] Free T4 [Mass/Vol] 0.88 ng/dL 0.76-1.46 [facility] Globulin (S) [Mass/Vol] 3.6 g/dL 2.2-4.2 [facility] Urea nitrogen/Creatinine [Mass ratio] 20.7 mg/mg 10-20 [facility] Laboratory - Hematology and Cell countsOrdered By: Fannie Guzman on 08-04-2022 Erythrocyte distribution width (RBC) [Entitic vol] 39.9 fL 35.1-43.9 [facility] Erythrocyte distribution width (RBC) [Ratio] 13.0 % 11.6-14.6 [facility] Immature granulocytes/100 WBC (Bld) 0.200 % 0.0-0.9 [facility] Comment on above: IG% - Immature Granu locytes (promyelocytes, myelocytes and metamyelocytes) > 1% indicates that a LEFT SHIFT is Present. MCH (RBC) [Entitic mass] 28.6 pg 27.0-32.0 [facility] Nucleated RBC/100 WBC (Bld) [Ratio] 0 % 0-5 [facility] MCHC Auto (RBC) [Mass/Vol]Or dered By: Fannie Guzman on 08-04-2022 MCHC (RBC) [Mass/Vol] 33.7 g/dL 32-36 [facility] No Panel InformationOrdered By: Fannie Guzman on 08-04-2022 Estimated GFR (MDRD) Amer 131 mL/min >60 [facility] Comment on above: GFR Calc Estimated GFR (MDRD) Non-Af Amer 108 mL/min >60 [facility] Comment on above: Non- GFR Calc Free Triiodothyronine (T3) pg/dL 2.5 pg/mL 2.18-3.98 [facility] Thyroid Stimulating Hormone (TSH) 1.52 uIU/mL 0.358-3.74 [facility] Platelets bldOrdered By: Kevon Guzman on 08-04-2022 Platelets (Bld) [#/Vol] 210 10*3/uL 150-450 [facility] Serum or plasma albumin jose urement (mass/volume)Ordered By: Fannie Guzman on 08-04-2022 Albumin [Mass/Vol] 3.9 g/dL 3.2-5.0 [facility] Serum or plasma albumin/glob ulin mass ratioOrdered By: Fannie Guzman on 08-04-2022 Albumin/Globulin [Mass ratio] 1.1 {ratio} 0.9-2.4 [facility] Serum or plasma calcium jose urement (mass/volume)Ordered By: Fannie Guzman on 08-04-2022 Calcium [Mass/Vol] 8.8 mg/dL 8.5-10.1 [facility] Serum or plasma creatinine m easurement (mass/volume)Ordered By: Fannie Guzman on 08-04-2022 Creatinine [Mass/Vol] 0.87 mg/dL 0.70-1.30 [facility] Comment on above: The validity of the calculated GFR & GFRAA in patients over 70 years has not been determined. Clinical correlation is essential. Serum or plasma urea nitroge n measurement (mass/volume)Ordered By: Fannie Guzman on 08-04-2022 Urea nitrogen [Mass/Vol] 18 mg/dL 7-18 [facility] Thin prep Papanicolaou smear with manual screeningOrdered By: Fannie Guzman on 08-04-2022 Thin prep Papanicolaou smear with manual screening 18 U/L 15-37 [facility] Thin prep Papanicolaou smear with manual screening 5 5-15 [facility] Whole blood hemoglobin A1c/t otal hemoglobin ratio (mass fraction)Ordered By: Fannie Guzman on 08-04-2022 HbA1c (Bld) [Mass fraction] 5.3 % 3.8-5.6 [facility] Comment on above: Normal < 5.7 % Predi abetic 5.7 - 6.4 % Diabetic >or= 6.5 % Please note range changes. CBC AND DIFFERENTIALon 05-16 % AUTOMATED IMMATURE GRAN 0.2 % Normal 0.0 - 0.9 [facility] Comment on above: Result Comment: Elisa ture Granulocyte Count (IG) includes promyelocytes, myelocytes and metamyelocytes but does not include bands. Percent differential counts (%) should be interpreted in the context of the absolute cell counts (cells/L). Performed By: #### C BCDF #### [facility] [address] [place] [address] Basophils (Bld) [#/Vol] 0.03 10*3/uL Normal 0.00 - 0.10 [facility] Comment on above: Performed By: #### C BCDF #### [facility] [address] [place] [address] Basophils/100 WBC (Bld) 0.7 % Normal 0.0 - 2.0 [facility] Comment on above: Performed By: #### C BCDF #### [facility] [address] [place] [address] Eosinophils (Bld) [#/Vol] 0.12 10*3/uL Normal 0.00 - 0.70 [facility] Comment on above: Performed By: #### C BCDF #### [facility] [address] [place] [address] Eosinophils/100 WBC (Bld) 2.7 % Normal 0.0 - 6.0 [facility] Comment on above: Performed By: #### C BCDF #### [facility] [address] [place] [address] Erythrocyte distribution width (RBC) [Ratio] 12.2 % Normal 11.5 - 14.5 [facility] Comment on above: Performed By: #### C BCDF #### [facility] [address] [place] [address] Hematocrit (Bld) [Volume fraction] 40.4 % Low 41.0 - 52.0 [facility] Comment on above: Performed By: #### C BCDF #### [facility] [address] [place] [address] Hemoglobin (Bld) [Mass/Vol] 14.5 g/dL Normal 13.5 - 17.5 [facility] Comment on above: Performed By: #### C BCDF #### [facility] [address] [place] [address] Lymphocytes (Bld) [#/Vol] 1.67 10*3/uL Normal 1.20 - 4.80 [facility] Comment on above: Performed By: #### C BCDF #### [facility] [address] [place] [address] Lymphocytes/100 WBC (Bld) 37.9 % Normal 13.0 - 44.0 [facility] Comment on above: Performed By: #### C BCDF #### [facility] [address] [place] [address] MCHC (RBC) [Mass/Vol] 35.9 g/dL Normal 32.0 - 36.0 [facility] Comment on above: Performed By: #### C BCDF #### [facility] [address] [place] [address] MCV (RBC) [Entitic vol] 82 fL Normal 80 - 100 [facility] Comment on above: Performed By: #### C BCDF #### [facility] [address] [place] [address] Monocytes (Bld) [#/Vol] 0.44 10*3/uL Normal 0.10 - 1.00 [facility] Comment on above: Performed By: #### C BCDF #### [facility] [address] [place] [address] Monocytes/100 WBC (Bld) 10.0 % Normal 2.0 - 10.0 [facility] Comment on above: Performed By: #### C BCDF #### [facility] [address] [place] [address] Neutrophils (Bld) [#/Vol] 2.14 10*3/uL Normal 1.20 - 7.70 [facility] Comment on above: Performed By: #### C BCDF #### [facility] [address] [place] [address] Neutrophils/100 WBC (Bld) 48.5 % Normal 40.0 - 80.0 [facility] Comment on above: Performed By: #### C BCDF #### [facility] [address] [place] [address] Platelets (Bld) [#/Vol] 169 10*3/uL Normal 150 - 450 [facility] Comment on above: Performed By: #### C BCDF #### [facility] [address] [place] [address] RBC 4.92 x10E12/L Normal 4.50 - 5.90 [facility] Comment on above: Performed By: #### C BCDF #### [facility] [address] [place] [address] WBC (Bld) [#/Vol] 4.4 10*3/uL Normal 4.4 - 11.3 [facility] Comment on above: Performed By: #### C BCDF #### [facility] [address] [place] [address] COMPREHENSIVE PANELon 2021 Albumin [Mass/Vol] 4.6 g/dL Normal 3.4 - 5.0 [facility] Comment on above: Performed By: #### C MP #### [facility] [address] [place] [address] ALP [Catalytic activity/Vol] 41 U/L Normal 33 - 120 [facility] Comment on above: Performed By: #### C MP #### [facility] [address] [place] [address] ALT [Catalytic activity/Vol] 26 U/L Normal 10 - 52 [facility] Comment on above: Result Comment: Yaquelin ents treated with Sulfasalazine may generate falsely decreased results for ALT. Performed By: #### C MP #### [facility] [address] [place] [address] Anion gap [Moles/Vol] 11 mmol/L Normal 10 - 20 [facility] Comment on above: Performed By: #### C MP #### [facility] [address] [place] [address] AST [Catalytic activity/Vol] 18 U/L Normal 9 - 39 [facility] Comment on above: Performed By: #### C MP #### [facility] [address] [place] [address] Bilirubin [Mass/Vol] 0.4 mg/dL Normal 0.0 - 1.2 [facility] Comment on above: Performed By: #### C MP #### [facility] [address] [place] [address] Calcium [Mass/Vol] 9.8 mg/dL Normal 8.6 - 10.3 [facility] Comment on above: Performed By: #### C MP #### [facility] [address] [place] [address] Chloride [Moles/Vol] 104 mmol/L Normal 98 - 107 [facility] Comment on above: Performed By: #### C MP #### [facility] [address] [place] [address] Creatinine [Mass/Vol] 0.81 mg/dL Normal 0.50 - 1.30 [facility] Comment on above: Performed By: #### C MP #### [facility] [address] [place] [address] eGFR MALE >90 Normal >90 [facility] Comment on above: Result Comment: CALC ULATIONS OF ESTIMATED GFR ARE PERFORMED USING THE 2020 CKD-EPI STUDY REFIT EQUATION WITHOUT THE RACE VARIABLE FOR THE IDMS-TRACEABLE CREATININE METHODS. https://jasn.asnjournals.org/content//ASN.74372 69887 Performed By: #### C MP #### [facility] [address] [place] [address] Glucose [Mass/Vol] 99 mg/dL Normal 74 - 99 [facility] Comment on above: Performed By: #### C MP #### [facility] [address] [place] [address] HCO3 (Bld) [Moles/Vol] 29 mmol/L Normal 21 - 32 [facility] Comment on above: Performed By: #### C MP #### [facility] [address] [place] [address] Potassium [Moles/Vol] 4.4 mmol/L Normal 3.5 - 5.3 [facility] Comment on above: Performed By: #### C MP #### [facility] [address] [place] [address] Protein [Mass/Vol] 7.5 g/dL Normal 6.4 - 8.2 [facility] Comment on above: Performed By: #### C MP #### [facility] [address] [place] [address] Sodium [Moles/Vol] 140 mmol/L Normal 136 - 145 [facility] Comment on above: Performed By: #### C MP #### [facility] [address] [place] [address] Urea nitrogen [Mass/Vol] 11 mg/dL Normal 6 - 23 [facility] Comment on above: Performed By: #### C MP #### [facility] [address] [place] [address] Clinic Note - Heme Onc-Follo w Up Visiton 05-16-2022 Clinic Note - Heme Onc-Follow Up Visit Patient Visit Information: Visit Type: Follow Up Visit Cancer History: Treatment History: Mr. Parish Raza is a 31 yo WM that was admitted to [facility] for excisional LN biopsy of R neck mass with FNA biopsy which showed c myc+ Burkitts lymphoma. Pt referred to Dr. Uriel Obrien at [facility] by Dr. Farmer for biopsy and further evaluation and treatment. Biopsy performed on 04/22/19 revealed CD20, CD10, BCL6, MYC and CD43 with 100% KI-67 and c-myc translocated. A Pet/CT on 04/25/19 showed hypermetabolic intensity in R neck mass, hypermetabolic supraclavicular LNs, symmetric oropharyngeal tonsil activity, diffuse metabolic activity throughout the bone marrow, and no hypermetabolic LAD below the diaphragm. A bone marrow biopsy on 04/27 was performed and was negative for lymphoma. He was started on Walker regimen CODOX-M ( Cytoxan, doxorubicin, vincristine and methotrexate). Two LPs were done while inpatient for intrathecal mtx and were negative for disease. He was discharged and received outpatient neulasta on 05/10. cycle #2 IVAC given on 05/24, neulasta on 05/31 Cycle #3 /3 CODOX M cycle #4 IVAC planned for 07/18 PET/CT shows complete remission August 2019 History of Present Illness: ID Statement: PARISH RAZA is a 31 year old Male Chief Complaint: follow up Burkitt's lymphoma Interval History: Mr. Parish Raza is a 31 yo WM diagnosis of stage II Burkitt's lymphoma. He is s/p 4 cycles of Walker regimen. He is in a complete remission. Since his last visit, he has been feeling well. 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 He is busy with his 2 children. He is very active but sometimes notices SOB with sprinting or periods of anxiety. He feels deconditioned from spending more time being sedentary watching his baby. He called the office a few months ago with vertigo. Symptoms are much less now. No fever, chills or night sweats. He has a good level of energy. Weight is stable. Review of Systems: ConstitutionalNEGATIVE : Fever, Chills, Anorexia, Weight Loss, Malaise EyesNEGATIVE: Blurry Vision, Drainage, Diploplia, Redness, Vision Loss/ Change ENMTNEGATIVE: Nasal Discharge, Nasal Congestion, Ear Pain, Mouth Pain, Throat Pain RespiratoryNEGATIVE: Dry Cough, Productive Cough, Hemoptysis, Wheezing, Shortness of Breath CardiologyNEGATIVE: Chest Pain, Dyspnea on Exertion, Orthopnea, Palpitations, Syncope GastrointestinalNEGATI VE: Abdominal Pain, Constipation, Diarrhea, Nausea, Vomiting GenitourinaryNEGATIVE: Discharge, Dysuria, Flank Pain, Frequency, Hematuria MusculoskeletalNEGATIV E: Decreased ROM, Pain, Swelling, Stiffness, Weakness NeurologicalNEGATIVE: Dizziness, Confusion, Headache, Seizures, Syncope PsychiatricNEGATIVE: Mood Changes, Anxiety, Hallucinations, Sleep Changes, Suicidal Ideas SkinNEGATIVE: Mass, Pain, Pruritus, Rash, Ulcer EndocrineNEGATIVE: Heat Intolerance, Cold Intolerance, Sweat, Polyuria, Thirst Hematologic/LymphNEGAT HUGO: Anemia, Bruising, Easy Bleeding, Night Sweats, Petechiae Allergic/ImmunologicNE GATIVE: Anaphylaxis, Itchy/ Teary Eyes, Itching, Sneezing, Swelling BreastNEGATIVE: Pain, Mass, Discharge, Nipple Itching, Gynecomastia Allergies and Intolerances: Allergies: No Known Allergies: Active Outpatient Medication Profile: * No Current Medications as of 16-May-2022 12:15 documented in Structured Notes Medical History: Confusion: ICD-10: R41.0, Status: Active Memory loss: ICD-10: R41.3, Status: Active Burkitt lymphoma: ICD-10: C83.70, Status: Active 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 Social History: Social Substance History: Smoking Statusnever smoker Additional History never smoker, never drinker (1) Performance: ECOG Performance Status: 0 Fully Active Vitals and Measurements: Vitals: Temp: 36.7 HR: 66 RR: 16 BP: 131/81 SPO2%: 100 Measurements: HT(cm): 185.4 WT(kg): 102.8 BSA: 2.3 BMI: 29.9 Last 3 Weights & Heights: Date: Weight/Scale Type:Height: 16-May-2022 11:78776.8 kg 185.4 cm 21-Oct-2021 08:29870.5 kg 185.4 cm 22-Jul-2021 09:18699.8 kg / standing flegr241.4 cm Physical Exam: Constitutional: Well developed, awake/alert/oriented x3, no distress, alert and cooperative Eyes: PERRL, EOMI, clear sclera ENMT: mucous membranes moist, no apparent injury, no lesions seen Head/Neck: Neck supple, no apparent injury, thyroid without mass or tenderness, No JVD, trachea midline, no bruits Respiratory/Thorax: Patent airways, CTAB, normal breath sounds with good chest expansion, thorax symmetric Cardiovascular: Regular, rate and rhythm, no murmurs, 2+ equal pulses of the extremities, normal S 1and S 2 Gastrointestinal: Nondistended, soft, non-tender, no rebound tenderness or guarding, no masses palpable, no organom (more content not included)... Normal [facility] Clinic Note - Intakeon 05-16 Clinic Note - Intake Patient Visit Information: Visit TypeFollow Up Visit Source of Informationpatient Vital Signs: Temp (degrees C)36.7 degrees C Temperatureskin Heart Rate (beats/min)66 beats per minute Respiration (breaths/min)16 breath per minute BP Systolic (mm Hg)131 mmHg BP Diastolic (mm Hg)81 mmHg BP Mean (mm Hg)97 mmHg Height in cm185.4 centimeter(s) Height Methodmeasured Heightstanding Weight in kg102.8 kilogram(s) Weightstanding BMI (kg/m2)29.9 kg/M2 BSA (m2)2.3 M2 Last 3 Weights & HeightsDate: Weight/Scale Type:Height: 21-Oct-2021 08:32323.5 kg 185.4 cm 22-Jul-2021 09:16856.8 kg / standing qabpy788.4 cm SpO2 (%)100 % SpO2 Patient Onroom air Pain Screening: Patient States Painno (0) Allergies: No Known Allergies: Active Outpatient Medication Profile: * No Current Medications as of 21-Oct-2021 09:10 documented in Structured Notes Notification: NotificationsAnnual Screens Due Dates Advanced Directives: October 21, 2022 Family Violence: October 21, 2022 Depression (Due every 6 months for ONC only; all others use Annual date): Apr 19, 2022 Substance Use - Alcohol: October 21, 2022 Substance Use - Drugs: October 21, 2022 Nutrition: October 21, 2022 Learning: October 21, 2022 Travel History: COVID-19 Screening Completedno exposure or symptoms Travel or ExposureNO travel to International locations in the past 30 days Falls: Have you fallen in the last 6 monthsno Do you have a fear of fallingno Do you feel you need assistanceno Is the patient using an assistive deviceno Electronic Signatures: Luann Higginbotham (PCNA) (Signed 16-May-2022 11:24) Authored: Patient Visit Information, Vital Signs, Allergies, Notification, Travel History, Falls Last Updated: 16-May-2022 11:24 by Luann Higginbotham (PCNA) Normal [facility] LDHon 05-16-2022 LDH 145 U/L Normal 84 - 246 [facility] Comment on above: Performed By: #### L #### [facility] [address] [place] [address] Absolute lymphocyte counton 01-21-2022 Lymphocytes Auto (Unsp spec) [#/Vol] 1.66 10*3/uL 0.83-4.51 [facility] Work Phone: Basophil percentageon 2021 Basophils/100 WBC (Bld) 0.4 % 0-1 [facility] Work Phone: Bilirubin [Mass/Vol] 0.60 mg/dL 0.20-1.00 [facility] Work Phone: Comment on above: For patients on eltr ombopag therapy, use of Dimension [place] TBIL is not recommended. Chloride [Moles/Vol] 104 mmol/L 98-107 [facility] Work Phone: Eosinophils/100 WBC (Bld) 3.0 % 0-5 [facility] Work Phone: Glucose [Mass/Vol] 96 mg/dL 74-106 [facility] Work Phone: Neutrophils (Bld) [#/Vol] 2.3 10*3/uL 2.0-7.7 [facility] Work Phone: Neutrophils/100 WBC (Bld) 49.6 % 47-70 [facility] Work Phone: Potassium [Moles/Vol] 4.3 mmol/L 3.5-5.1 [facility] Work Phone: Protein [Mass/Vol] 7.8 g/dL 6.4-8.2 [facility] Work Phone: Sodium [Moles/Vol] 138 mmol/L 136-145 [facility] Work Phone: WBC (Bld) [#/Vol] 4.7 10*3/uL 4.4-11.0 [facility]: Blood erythrocytes count (nu mber/volume)on 01-21-2022 RBC (Bld) [#/Vol] 5.12 10*6/uL 4.6-6.2 [facility]: Blood hemoglobin measurement (mass/volume)on 01-21-2022 Hemoglobin (Bld) [Mass/Vol] 15.2 g/dL 13.0-16.5 [facility] Work Phone: Blood lymphocytes/100 leukoc yteson 01-21-2022 Lymphocytes/100 WBC (Bld) 35.5 % 19-41 [facility] Work Phone: Blood monocytes/100 leukocyt eson 01-21-2022 Monocytes/100 WBC (Bld) 11.3 % 0-10 [facility] Work Phone: Blood platelet mean volumeon 01-21-2022 Platelet mean volume (Bld) [Entitic vol] 8.9 fL 6.2-12.0 [facility] Work Phone: Determination of erythrocyte mean corpuscular volume (MCV)on 01-21-2022 MCV (RBC) [Entitic vol] 83.8 fL 80-94 [facility] Work Phone: Hematocrit Auto (Bld) [Volum e fraction]on 01-21-2022 Hematocrit (Bld) [Volume fraction] 42.9 % 40-54 [facility] Work Phone: Laboratory - Chemistry and C hemistry - challengeon 01-21-2022 ALP [Catalytic activity/Vol] 43 U/L 45-117 [facility] Work Phone: ALT [Catalytic activity/Vol] 44 U/L 16-61 [facility] Work Phone: CO2 [Moles/Vol] 29.0 mmol/L 21.0-32.0 [facility] Work Phone: Globulin (S) [Mass/Vol] 3.8 g/dL 2.2-4.2 [facility] Work Phone: Urea nitrogen/Creatinine [Mass ratio] 15.7 mg/mg 10-20 [facility] Work Phone: Laboratory - Hematology and Cell countson 01-21-2022 Erythrocyte distribution width (RBC) [Entitic vol] 40.1 fL 35.1-43.9 [facility] Work Phone: Erythrocyte distribution width (RBC) [Ratio] 13.2 % 11.6-14.6 [facility] Work Phone: Immature granulocytes/100 WBC (Bld) 0.200 % 0.0-0.9 [facility] Work Phone: Comment on above: IG% - Immature Granu locytes (promyelocytes, myelocytes and metamyelocytes) > 1% indicates that a LEFT SHIFT is Present. MCH (RBC) [Entitic mass] 29.7 pg 27.0-32.0 [facility] Work Phone: Nucleated RBC/100 WBC (Bld) [Ratio] 0 % 0-5 [facility] Work Phone: MCHC Auto (RBC) [Mass/Vol]on 01-21-2022 MCHC (RBC) [Mass/Vol] 35.4 g/dL 32-36 [facility] Work Phone: No Panel Informationon 01-21 Estimated GFR (MDRD) Amer 139 mL/min >60 [facility] Work Phone: Comment on above: GFR Calc Estimated GFR (MDRD) Non-Af Amer 115 mL/min >60 [facility] Work Phone: Comment on above: Non- GFR Calc Thyroid Stimulating Hormone (TSH) 2.15 uIU/mL 0.358-3.74 [facility] Work Phone: Platelets bldon 01-21-2022 Platelets (Bld) [#/Vol] 203 10*3/uL 150-450 [facility] Work Phone: Serum or plasma albumin jose urement (mass/volume)on 01-21-2022 Albumin [Mass/Vol] 4.0 g/dL 3.2-5.0 [facility] Work Phone: Serum or plasma albumin/glob ulin mass ratioon 01-21-2022 Albumin/Globulin [Mass ratio] 1.1 {ratio} 0.9-2.4 [facility] Work Phone: Serum or plasma calcium jose urement (mass/volume)on 01-21-2022 Calcium [Mass/Vol] 8.9 mg/dL 8.5-10.1 [facility] Work Phone: Serum or plasma creatinine m easurement (mass/volume)on 01-21-2022 Creatinine [Mass/Vol] 0.83 mg/dL 0.70-1.30 [facility] Work Phone: Comment on above: The validity of the calculated GFR & GFRAA in patients over 70 years has not been determined. Clinical correlation is essential. Serum or plasma urea nitroge n measurement (mass/volume)on 01-21-2022 Urea nitrogen [Mass/Vol] 13 mg/dL 7-18 [facility] Work Phone: Thin prep Papanicolaou smear with manual screeningon 01-21-2022 Thin prep Papanicolaou smear with manual screening 23 U/L 15-37 [facility] Work Phone: Thin prep Papanicolaou smear with manual screening 5 5-15 [facility] Work Phone: Vital Signs Date Time Vital Sign Value Performing Clinician Facility 02-16-2025 16:39-0400 Body temperature 97.3 [degF] Ashley Knox MD Work Phone: [facility] 02-16-2025 16:39-0400 Diastolic blood pressure 87 mm[Hg] Ashley Knox MD Work Phone: [facility] 02-16-2025 16:39-0400 Heart rate 77 /min Ashley Knox MD Work Phone: [facility] 02-16-2025 16:39-0400 Respiratory rate 16 /min Ashley Knox MD Work Phone: [facility] 02-16-2025 16:39-0400 SaO2% (BldA) [Mass fraction] 100 % Ashley Knox MD Work Phone: [facility] 02-16-2025 16:39-0400 Systolic blood pressure 144 mm[Hg] Ashley Knox MD Work Phone: [facility] 02-16-2025 13:55-0400 Body height 187.96 cm Ashley Knox MD Work Phone: [facility] 02-16-2025 13:55-0400 Body mass index (BMI) [Ratio] 32.6 kg/m2 Ashley Knox MD Work Phone: [facility] 02-16-2025 13:55-0400 Body weight 115.39 kg Ashley Knox MD Work Phone: [facility] 02-15-2025 23:19-0400 Body temperature 97.8 [degF] Ashley Knox MD Work Phone: [facility] 02-15-2025 23:19-0400 Diastolic blood pressure 79 mm[Hg] Ashley Knox MD Work Phone: [facility] 02-15-2025 23:19-0400 Heart rate 78 /min Ashley Knox MD Work Phone: [facility] 02-15-2025 23:19-0400 Respiratory rate 16 /min Ashley Knox MD Work Phone: [facility] 02-15-2025 23:19-0400 SaO2% (BldA) [Mass fraction] 100 % Ashley Knox MD Work Phone: [facility] 02-15-2025 23:19-0400 Systolic blood pressure 133 mm[Hg] Ashley Knox MD Work Phone: [facility] 02-15-2025 20:50-0400 Body height 187.96 cm Ashley Knox MD Work Phone: [facility] 02-15-2025 20:50-0400 Body mass index (BMI) [Ratio] 31.4 kg/m2 Ashley Knox MD Work Phone: [facility] 02-15-2025 20:50-0400 Body weight 111.22 kg Ashley Knox MD Work Phone: [facility] 12-02-2024 08:27-0400 Body height 185.9 cm Merna Coronel MD PhD Work Phone: [facility] 12-02-2024 08:27-0400 Body mass index (BMI) [Ratio] 30.99 kg/m2 Merna Coronel MD PhD Work Phone: [facility] 12-02-2024 08:27-0400 Body temperature 97 [degF] Merna Coronel MD PhD Work Phone: [facility] 12-02-2024 08:27-0400 Body weight 107.1 kg Merna Coronel MD PhD Work Phone: [facility] 12-02-2024 08:27-0400 Diastolic blood pressure 79 mm[Hg] Merna Coronel MD PhD Work Phone: [facility] 12-02-2024 08:27-0400 Heart rate 67 /min Merna Coronel MD PhD Work Phone: [facility] 12-02-2024 08:27-0400 Respiratory rate 17 /min Merna Coronel MD PhD Work Phone: [facility] 12-02-2024 08:27-0400 SaO2% (BldA) [Mass fraction] 100 % Merna Coronel MD PhD Work Phone: [facility] 12-02-2024 08:27-0400 Systolic blood pressure 127 mm[Hg] Merna Coronel MD PhD Work Phone: [facility] 11-13-2023 09:51-0400 Body mass index (BMI) [Ratio] 30.13 kg/m2 Merna Coronel MD PhD Work Phone: [facility] 11-13-2023 09:51-0400 Body temperature 97.9 [degF] Merna Coronel MD PhD Work Phone: [facility] 11-13-2023 09:51-0400 Body weight 102.9 kg Merna Coronel MD PhD Work Phone: [facility] 11-13-2023 09:51-0400 Diastolic blood pressure 55 mm[Hg] Merna Coronel MD PhD Work Phone: [facility] 11-13-2023 09:51-0400 Heart rate 87 /min Merna Coronel MD PhD Work Phone: [facility] 11-13-2023 09:51-0400 SaO2% (BldA) [Mass fraction] 96 % Merna Coronel MD PhD Work Phone: [facility] 11-13-2023 09:51-0400 Systolic blood pressure 125 mm[Hg] Merna Coronel MD PhD Work Phone: [facility] 05-15-2023 08:56-0500 Body height 184.8 cm Mary Anne Maxwell WALKING DRAGLINE OPERATOR-STUDENT ADMISSIONS CLERK Work Phone: [facility] 05-15-2023 08:56-0500 Body mass index (BMI) [Ratio] 31.58 kg/m2 Mary Anne Maxwell WALKING DRAGLINE OPERATOR-STUDENT ADMISSIONS CLERK Work Phone: [facility] 05-15-2023 08:56-0500 Body temperature 96.6 [degF] Mary Anne Maxwell WALKING DRAGLINE OPERATOR-STUDENT ADMISSIONS CLERK Work Phone: [facility] 05-15-2023 08:56-0500 Body weight 107.86 kg Mary Anne Maxwell WALKING DRAGLINE OPERATOR-STUDENT ADMISSIONS CLERK Work Phone: [facility] 05-15-2023 08:56-0500 Diastolic blood pressure 78 mm[Hg] Mary Anne Americordesirae WALKING DRAGLINE OPERATOR-STUDENT ADMISSIONS CLERK Work Phone: [facility] 05-15-2023 08:56-0500 Heart rate 87 /min Mary Anne Americordesirae WALKING DRAGLINE OPERATOR-STUDENT ADMISSIONS CLERK Work Phone: [facility] 05-15-2023 08:56-0500 Respiratory rate 18 /min Mary Anne Americordesirae WALKING DRAGLINE OPERATOR-STUDENT ADMISSIONS CLERK Work Phone: [facility] 05-15-2023 08:56-0500 SaO2% (BldA) [Mass fraction] 98 % Mary Annegarrett Driscollrdesirae WALKING DRAGLINE OPERATOR-STUDENT ADMISSIONS CLERK Work Phone: [facility] 05-15-2023 08:56-0500 Systolic blood pressure 121 mm[Hg] Mary Anne Driscollrdesirae WALKING DRAGLINE OPERATOR-STUDENT ADMISSIONS CLERK Work Phone: [facility] Encounters Encounter Date Encounter Type Care Provider Facility Start: 02-16-2025 End: 02-16-2025 Emergency department patient visit Ashley Knox MD Work Phone: -Emergency Department Work Phone: Start: 02-15-2025 End: 02-16-2025 Emergency department patient visit Ashley Knox MD Work Phone: -Emergency Department Work Phone: Start: 12-02-2024 End: 12-02-2024 Office outpatient visit 15 minutes Merna Coronel MD PhD Work Phone: [facility] Comment on above: Burkitt lymphoma, un specified body region (Multi) Start: 12-02-2024 End: 12-02-2024 ambulatory MERNA CORONEL [facility] Start: 07-18-2024 End: 07-18-2024 ambulatory Ashley Knox Facility:[facility] Start: 11-13-2023 End: 11-13-2023 Office outpatient new 45 minutes Merna Coronel MD PhD Work Phone: [facility] Comment on above: Burkitt lymphoma, un specified body region (Multi) Start: 05-15-2023 End: 05-15-2023 Office outpatient visit 15 minutes Mary Anne Maxwell WALKING DRAGLINE OPERATOR-STUDENT ADMISSIONS CLERK Work Phone: [facility] Comment on above: Burkitt lymphoma, un specified body region (CMS/HCC) (Primary Dx) Start: 11-14-2022 ambulatory STUDENT ADMISSIONS CLERK MARY ANNE MAXWELL Facility:[facility] Start: 08-04-2022 End: 08-04-2022 ambulatory [facility] Work Phone: Start: 08-04-2022 End: 08-04-2022 Patient encounter procedure [facility] Start: 05-16-[address] Carloz Alcala Facility:[facility] Start: 01-21-2022 End: 01-21-2022 Patient encounter procedure [facility] Plan of Treatment Date Care Activity Detail Author Start: 12-01-2025 End: 12-01-2025 Patient encounter procedure 12/01/2025 9:00 AM EDT Office Visit [facility] [address] [place] [address] Tamra Walker PA-C [address] [place] [address] [facility] Start: 02-16-2025 [facility] Start: 02-16-2025 [facility] Start: 02-15-2025 [facility] Start: 02-13-2025 Influenza vaccination Influenz a Vaccine (Season Ended) [facility] Start: 11-11-2024 End: 11-11-2024 Patient encounter procedure 11/11/2024 9:40 AM EDT Office Visit [facility] [address] [place] [id number] Merna Coronel MD PhD [address] [place], [place] [id number] [facility] Start: 02-14-2024 Influenza vaccination Influenz a Vaccine (Season Ended) [facility] Start: 11-14-2023 End: 05-15-2024 CBC W Auto Differential panel - Blood CBC and Auto Differential Lab Routine Burkitt lymphoma, unspecified body region (CMS/HCC) Expected: 11/14/2023, Expires: 05/15/2024 [facility] Service Area Work Phone: Comment on above: Expected: 11/14/2023 , Expires: 05/15/2024 Start: 11-14-2023 End: 05-15-2024 Comprehensive metabolic 2000 panel - Serum or Plasma Comprehensive metabolic panel Lab Routine Burkitt lymphoma, unspecified body region (CMS/HCC) Expected: 11/14/2023 (Approximate), Expires: 05/15/2024 [facility] Work Phone: Comment on above: Expected: 11/14/2023 (Approximate), Expires: 05/15/2024 Start: 11-14-2023 End: 05-15-2024 Lactate dehydrogenase [Enzymatic activity/volume] in Serum or Plasma by Lactate to pyruvate reaction Lactate dehydrogenase Lab Routine Burkitt lymphoma, unspecified body region (CMS/HCC) Expected: 11/14/2023 (Approximate), Expires: 05/15/2024 [facility] Work Phone: Comment on above: Expected: 11/14/2023 (Approximate), Expires: 05/15/2024 Start: 11-13-2023 End: 11-13-2023 Patient encounter procedure 11/13/2023 10:00 AM EDT Office Visit [facility] [address] [place] [phone] Merna Coronel MD PhD [address] [place], [place] [id number] [facility] Start: 02-13-2023 Influenza vaccination Influenza Vacc ine (#1) [facility] Start: 11-28-2020 COVID-19 Vaccine (3 - Moderna risk series) COVID-19 Vaccine (3 - Moderna risk series) [facility] Start: 2012 DTaP/Tdap/Td Vaccine s (1 - Tdap) DTaP/Tdap/Td Vaccines (1 - Tdap) [facility] Start: 2009 Hepatitis B Vaccines (1 of 3 - 19+ 3-dose series) Hepatitis B Vaccines (1 of 3 - 19+ 3-dose series) [facility] Start: 2009 Pneumococcal Vaccine : Pediatrics and At-Risk Adult Patients (1 of 2 - PCV) Pneumococcal Vaccine: Pediatrics and At-Risk Adult Patients (1 of 2 - PCV) [facility] Start: 2009 Zoster Vaccines (1 of 2) Zoste r Vaccines (1 of 2) [facility] Start: 11-26-2003 Varicella vaccination Varicell a Vaccines (1 of 2 - 13+ 2-dose series) [facility] Start: 1996 Pneumococcal Vaccine : Pediatrics (0 to 5 Years) and At-Risk Patients (6 to 64 Years) (1 - PCV) Pneumococcal Vaccine: Pediatrics (0 to 5 Years) and At-Risk Patients (6 to 64 Years) (1 - PCV) [facility] Start: 1996 Pneumococcal Vaccine : Pediatrics (0 to 5 Years) and At-Risk Patients (6 to 64 Years) (1 of 2 - PCV) Pneumococcal Vaccine: Pediatrics (0 to 5 Years) and At-Risk Patients (6 to 64 Years) (1 of 2 - PCV) [facility] Start: 11-26-1991 MMR Vaccines (1 of 1 - Standard series) MMR Vaccines (1 of 1 - Standard series) [facility] Start: 11-26-1991 Varicella vaccination Varicell a Vaccines (1 of 2 - 2-dose childhood series) [facility] Start: 1990 Hepatitis B Vaccines (1 of 3 - 3-dose series) Hepatitis B Vaccines (1 of 3 - 3-dose series) [facility] Start: 1990 Lipid panel Lipid Panel [facility] Start: 1990 Yearly Adult Physical [facility]ly [facility] Patient Education [facility] Work Phone: Payers Date Payer Category Payer Self-pay [id number] 2022 [employer] [facility] [id number] 2022 Unknown [facility] P [id number] 2022-Present [address] [id number] 2022 Unknown [id number] 2019 Unknown [id number] 1990 Unknown [id number] 1990 Unknown [id number] 1990 Unknown [id number] 1990 Unknown [id number] Unknown [id number] Unknown [id number] Unknown [id number] Social History Date Type Detail Facility Start: 06-05-2019 End: 06-05-2019 Tobacco smoking status NHIS Unknown if ever smoked [facility] Start: 1990 Sex Assigned At Male W [facility] Start: 05-15-2023 End: 02-16-2025 Tobacco smoking status NHIS Never smoked tobacco [facility] Start: 05-15-2023 Tobacco use and exposure Smokeless tobacco non-user [facility] Work Phone: Start: 05-15-2023 End: 12-02-2024 History of Social function [facility] Work Phone: Start: 05-15-2023 End: 12-02-2024 Tobacco use panel [facility] Work Phone: Start: 1990 Sex Assigned At Not on file U [facility] Work Phone: Start: 05-05-2023 End: 11-13-2023 Exposure to SARS-CoV-2 (event) Not sure [facility] Start: 12-02-2024 Alcoholic beverage intake Lifetime non-drinker (finding) [facility] Work Phone: Clinical Notes 05-15-2023 to 02-16-2025 Note Date & Type Note Facility 02-16-2025 Discharge summary [facility] 02-15-2025 Discharge summary Note Date/Time February 16, 2025 12:46am [facility] Medical Records Department [address] [place] [address] Emergency Department Summary 02/15/25 MR#: [id number] Acct: [id number] Name: PARISH RAZA Rep #:[id number] : 1990 34 From: [facility] Armstrong PCP: Dr. Ashley Knox MD Status:REG ER Location: ED ADDENDUM by Dr. Alfonzo Johnson MD on 02/16/25 at 0046 During discharge the patient had recurrent bleeding. Earlier he was cauterized by another emergency physician. He was bleeding primarily from the right side. There is blood dried on the left. But no active bleeding. He is blood in the posterior pharynx. I do patient blow his nose. I placed a cottonball soaked with Afrin in both sides. Bleeding was controlled. I then placed a anterior Merisel nasal pack on the right. Patient sat air for 10 to 15 minutes he was ambulated had no further bleeding posterior pharynx is clear there is no bleeding from the left naris. He will be discharged home with the packing in. He will be placed on amoxicillin 500 3 times daily for 3 days until the packs pulled. He will follow-up with ENT or return if he has recurrent bleeding. He is on no blood thinners. And does not have a history of nosebleeds or any trauma. Patient is doing well at 12:45 PM. 02/16/25 0046<Electronically signed by Alfonzo Johnson MD> Cosigner Signature (if applicable): cc: Dr. Ashley Knox MD ~* Signed HPI History of Present Illness Chief Complaint: Nosebleed [facility] Medical History no medical history Home Medications ?Medication ?Instructions ?Recorded ?Last Taken ?Type ondansetron 8 mg disintegrating 8 mg PO TID 06/05/19 U nknown History tablet Allergy/AdvReac Type Severity Reaction Status Date / Time No Known Allergies Allergy Verified 02/15/25 20:49 Social History Smoking Status: Never smoker EXAM Physical Exam Const Vital Signs: 02/15/25 20:50 Temperature 97.9 F Temperature Source Temporal Pulse Rate 90 Respiratory Rate 18 Blood Pressure 134/86 H Blood Pressure Mean 102 Pulse Ox 99 Oxygen Delivery Method Room Air MDM MDM MDM Narrative Medical decision making narrative: HISTORY OF PRESENT ILLNESS: Chief complaint: Nosebleed 34-year-old male with no significant past. He resents epistaxis. Notes he has been having intermittent epistaxis for the past several weeks. Notes 2 nosebleeds today. Denies blood thinners. States he recently started taking allergy medication prevent nosebleeds from happening. REVIEW OF SYSTEMS: Pertinent positives: Epistaxis Pertinent negatives: Lightheadedness, dizziness, chest pain PHYSICAL EXAM: Nursing triage notes reviewed, Vital signs reviewed Constitutional: please see mdm HENT: MMM, dried blood noted in the anterior right nare. No active bleeding noted. No posterior oropharyngeal clots noted. Eyes: Pupils equal round and reactive to light, Extraocular muscles intact Neck: No stridor, no JVD, full neck ROM Lungs: Clear to auscultation, No wheezing or rales. No increased work of breathing, no conversational dyspnea, no accessory muscle use, no nasal flaring. No respiratory distress noted Heart: Regular rate and rhythm, No murmurs, No rubs and No gallops, 2+ distal pulses (radial, femoral, posterior tibial) in all extremities MEDICAL DECISION MAKING: Chief Complaint: please see [facility] External records reviewed: Reviewed prior imaging Factors affecting care: none [facility] Narrative: Patient was initially hemodynamically stable, afebrile and nontoxic-appearing. Exam consistent with anterior epistaxis. Applied pressure with nasal clamp. No active hemostasis noted. Given the patient intermittent symptoms over 2 weeks he opted for ED cauterization. I applied let for additional hemostasis as well as anesthesia. Use silver nitrate sticks for chemical cauterization. Patient was hemostatic after this intervention. Gave strict return precautions, home epistaxis instructions, outpatient ENT follow-up instructions. The patient and/or family, caregivers express understanding. The patient and/orfamily, caregivers agrees with the plan. Shared decision making: I will have a discussion with the patient and or visitors regarding risk/benefits of further testing or admission. They will be made aware of of the risk/benefits inherent in this decision they will be given the opportunity to voice understanding. Total critical care time today provided was at least 0 minutes. This excludes separately billable procedures. Critical care time (if documented) is secondary to the patient having high probability of clinically significant/life threatening deterioration in the patient's condition which required my urgent intervention. Impression: 1. Acute anterior epistaxis Dispo: Discharge home This note was generated with [employer] dictation software. It may contain incorrectwords, spelling, and punctuation that were not noted in review of the chart prior to signing. Discharge Plan Triage Chief Complaint: Nosebleed ED Provider: Michael Welch Dx/Rx/DC Orders Clinical Impression: Acute anterior epistaxis Instructions: ED Epistaxis (Adult) Prescriptions: No Action ondansetron 8 MG tablet,disintegrating 8 mg PO TID Primary Care Provider: Ashley Knox Referrals: Romie Cazares MD [Med Staff - Courtesy Staff] - Activity Restrictions/Additional Instructions: Thank you for trusting us with your care today! If you develop a nosebleed at home. Hold firm pressure until your knuckles turnwhite or your skin blanches. Do this for 10 to 15 minutes. If you continue bleeding please blow your nose vigorously. Then apply Afrin (oxymetazoline). Afrin can be obtained [id number] at any pharmacy or drugstore. If you continue to bleed after the 2 interventions please return to the emergency department. Please return to the emergency department if your symptoms change or worsen. Please follow with your primary care physician for further outpatient evaluationand management. Print Language: [place] Disposition Disposition: Home, Self Care What to do if you have Problems For any increased pain, shortness of breath, bleeding, nausea or vomiting, chestpain, or any unexpected problems, contact your Primary Care Provider. Call [facility] ([phone]) or report to the closest Emergency Room. Call 911 if necessary. 02/15/25 5156 <Electronically signed by Michael Welch DO> Cosigner Signature (if applicable): CC: Dr. Ashley Knox MD ~ Signed [facility] Work Phone: [phone] 208-909709-03-2025 Hospital Discharge instructionsAdditional Instructions Thank you for trusting us with your care today! If you develop a nosebleed at home. Hold firm pressure until your knuckles turn white or your skin blanches. Do this for 10 to 15 minutes. If you continue bleeding please blow your nose vigorously. Then apply Afrin (oxymetazoline). Afrin can be obtained [id number] at any pharmacy or drugstore. If you continue to bleed after the 2 interventions please return to the emergency department. Please return to the emergency department if your symptoms change or worsen. Please follow with your primary care physician for further outpatient evaluation and management. If rebleeds hold direct pressure for 20 to 30 minutes and ice to your nose if unable to get stop return. If for any reason the nasal pack comes out just leave it out because she cannot put it back in. You will be on the antibiotic amoxicillin 3 times a day for 3 days until the packing comes out. The packing should stay in all day tomorrow Thursday and you can pull it out either late Thursday evening or Thursday morning.[facility] Work Phone: [phone] 864-893006-20-2025 History of Present illness Narrative* Merna Coronel MD PhD - 12/02/2024 9:00 AM EDT Patient ID: Parish Raza is a 34 y.o. male. Referring Physician: No referring provider defined for this encounter. Primary Care Provider: No Assigned PCP Generic Provider, Subjective Mr. 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 He is s/p 4 cycles of Walker regimen and achieved complete remission. Most recent PET/CT shows complete remissionMarch 2019. Since his last visit, he has been feeling well. 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 He is busy with his 2 children. Vertigo is less often than previous: sometimes none for months, then a few incidents in a row. No fever, chills or night sweats. He has a good level of energy. Weight is stable. 12/02/2024: feels well. Busy with his work, physics class, taking care of 2 boys. Energy is good. Nofever wt loss night sweats. Occasional vertigo relieved with rest and meds. Onc Treatment History: Mr. Parish Raza is a 31 yo WM that was admitted to [facility] for excisional LN biopsy of R neck mass with FNA biopsy which showed c myc+ Burkitts lymphoma. Pt referred to Dr. Uriel Obrien at [facility] by Dr. Farmer for biopsy and further evaluation and treatment. Biopsy performed on 04/22/19 revealed CD20, CD10, BCL6, MYC and CD43 with 100% KI-67 and c-myc translocated. A Pet/CT on 04/25/19 showed hypermetabolic intensity in R neck mass, hypermetabolic supraclavicular LNs, symmetric oropharyngeal tonsil activity, diffuse metabolic activity throughout the bone marrow, and no hypermetabolic LAD below the diaphragm. A bone marrow biopsy on 04/27 was performed and was negative for lymphoma. He wasstarted on Walker regimen CODOX-M ( Cytoxan, doxorubicin, vincristine and methotrexate). Two LP's were done while inpatient for intrathecal mtx and were negative for disease. He was discharged and received outpatient neulasta on 05/10. cycle #2 IVAC given on 05/24, neulasta on 05/31 Cycle #3 / CODOX M cycle #4 IVAC planned for 07/18 Review of Systems Constitutional: Negative. HENT: Negative. Eyes: Negative. Respiratory: Negative. Cardiovascular: Negative. Gastrointestinal: Negative. Endocrine: Negative. Genitourinary: Negative. Musculoskeletal: Negative. Skin: Negative. Neurological: Negative. Vertigo Hematological: Negative. Psychiatric/Behavioral: Negative. Objective BSA: 2.35 meters squared BP 127/79 Pulse 67 Temp 36.1 C (97 F) Resp 17 Ht (S) 1.859 m (6' 1.19) Wt 107 kg (236 lb1.8 oz) SpO2 100% BMI 30.99 kg/m No family history on file. Oncology History No history exists. Parish Raza reports that he has never smoked. He has never used smokeless tobacco. He reports no history of alcohol use. He reports no history of drug use. Physical Exam Constitutional: General: He is not in acute distress. Appearance: He is not toxic-appearing. HENT: Head: Normocephalic. Nose: Nose normal. Mouth/Throat: Mouth: Mucous membranes are moist. Eyes: Extraocular Movements: Extraocular movements intact. Pupils: Pupils are equal, round, and reactive to light. Cardiovascular: Rate and Rhythm: Normal rate and regular rhythm. Heart sounds: No murmur heard. Pulmonary: Effort: Pulmonary effort is normal. Breath sounds: Normal breath sounds. Abdominal: General: Bowel sounds are normal. Palpations: Abdomen is soft. There is no mass. Tenderness: There is no abdominal tenderness. There is no rebound. Musculoskeletal: General: No swelling, tenderness, deformity or signs of injury. Right lower leg: No edema. Left lower leg: No edema. Skin: Coloration: Skin is not jaundiced. Findings: No bruising, lesion or rash. Neurological: Mental Status: He is alert and oriented to person, place, and time. Cranial Nerves: No cranial nerve deficit. Motor: No weakness. Gait: Gait normal. Psychiatric: Mood and Affect: Mood normal. Performance Status: Asymptomatic Assessment/Plan #Burkitt lymphoma, dx 04/22/19 -Stage II, low risk without abd disease, bulky disease, or elevated LDH. No BM involvement. -Received abbreviated Walker regimen CODOX-M (Cytoxan, doxorubicin, vincristine and methotrexate):2 full cycles of CODOX-M / IVAC. Two LP's were done while inpatient for intrathecal treatment, and were negative for disease. -Remission was confirmed with PET/CT. Most recent PET/CT shows complete remission August 2019. -No suspicion of relapse. Most likely he is cured, because the regimen is high curative and BL relapse typically occurs early. -Vertigo was investigated in the past with MRI brain. Symptoms are episodic and relatively rare. Possibly due to prior chemo including IT. Additional work up may not be needed given it's mild and rare clinical course. -12/02/2024: doing well. Labs are WNL. No suspicion of relapse. Will monitor q12mon. Plan -MD/ARLET q6-12 mon with labs. Time spent today: 50 min. Merna Coronel MD PhD documented in this [facility] Work Phone: [phone] History of Present illness Narrative* Merna Coronel MD PhD - 11/13/2023 10:00 AM EDT Patient ID: Parish Raza is a 32 y.o. male. Referring Physician: ROGE Jimenez Office Address Unavailable as of 07/25/2023 Primary Care Provider: No primary care provider on file. Subjective Mr. 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 He is s/p 4 cycles of Walker regimen and achieved complete remission. Most recent PET/CT shows complete remissionAugust 2019. Since his last visit, he has been feeling well. 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 He is busy with his 2 children. Vertigo is less often than previous: sometimes none for months, then a few incidents in a row. No fever, chills or night sweats. He has a good level of energy. Weight is stable. Onc Treatment History: Mr. Parish Raza is a 31 yo WM that was admitted to [facility] for excisional LN biopsy of R neck mass with FNA biopsy which showed c myc+ Burkitts lymphoma. Pt referred to Dr. Uriel Obrien at [facility] by Dr. Farmer for biopsy and further evaluation and treatment. Biopsy performed on 04/22/19 revealed CD20, CD10, BCL6, MYC and CD43 with 100% KI-67 and c-myc translocated. A Pet/CT on 04/25/19 showed hypermetabolic intensity in R neck mass, hypermetabolic supraclavicular LNs, symmetric oropharyngeal tonsil activity, diffuse metabolic activity throughout the bone marrow, and no hypermetabolic LAD below the diaphragm. A bone marrow biopsy on 04/27 was performed and was negative for lymphoma. He wasstarted on [place] regimen CODOX-M ( Cytoxan, doxorubicin, vincristine and methotrexate). Two LP's were done while inpatient for intrathecal mtx and were negative for disease. He was discharged and received outpatient neulasta on 05/10. cycle #2 IVAC given on 05/24, neulasta on 05/31 Cycle #3 1/3 CODOX M cycle #4 IVAC planned for 2/ Review of Systems Constitutional: Negative. HENT: Negative. Eyes: Negative. Respiratory: Negative. Cardiovascular: Negative. Gastrointestinal: Negative. Endocrine: Negative. Genitourinary: Negative. Musculoskeletal: Negative. Skin: Negative. Neurological: Negative. Vertigo Hematological: Negative. Psychiatric/Behavioral: Negative. Objective BSA: 2.3 meters squared BP 125/55 (BP Location: Right arm, Patient Position: Sitting) Pulse 87 Temp 36.6 C (97.9 F) (Temporal) Wt 103 kg (226 lb 13.7 oz) SpO2 96% BMI 30.13 kg/m No family history on file. Oncology History No history exists. Parish Raza reports that he has never smoked. He has never used smokeless tobacco. He has no history on file for alcohol use. He has no history on file for drug use. Physical Exam Constitutional: General: He is not in acute distress. Appearance: He is not toxic-appearing. HENT: Head: Normocephalic. Nose: Nose normal. Mouth/Throat: Mouth: Mucous membranes are moist. Eyes: Extraocular Movements: Extraocular movements intact. Pupils: Pupils are equal, round, and reactive to light. Cardiovascular: Rate and Rhythm: Normal rate and regular rhythm. Heart sounds: No murmur heard. Pulmonary: Effort: Pulmonary effort is normal. Breath sounds: Normal breath sounds. Abdominal: General: Bowel sounds are normal. Palpations: Abdomen is soft. There is no mass. Tenderness: There is no abdominal tenderness. There is no rebound. Musculoskeletal: General: No swelling, tenderness, deformity or signs of injury. Right lower leg: No edema. Left lower leg: No edema. Skin: Coloration: Skin is not jaundiced. Findings: No bruising, lesion or rash. Neurological: Mental Status: He is alert and oriented to person, place, and time. Cranial Nerves: No cranial nerve deficit. Motor: No weakness. Gait: Gait normal. Psychiatric: Mood and Affect: Mood normal. Performance Status: Asymptomatic Assessment/Plan #Burkitt lymphoma, dx 04/22/19 -Stage II, low risk without abd disease, bulky disease, or elevated LDH. No BM involvement. -Received abbreviated Walker regimen CODOX-M (Cytoxan, doxorubicin, vincristine and methotrexate):2 full cycles of CODOX-M / IVAC. Two LP's were done while inpatient for intrathecal treatment, and were negative for disease. -Remission was confirmed with PET/CT. Most recent PET/CT shows complete remission August 2019. -No suspicion of relapse. Most likely he is cured, because the regimen is high curative and BL relapse typically occurs early. -Vertigo was investigated in the past with MRI brain. Symptoms are episodic and relatively rare. Possibly due to prior chemo including IT. Additional work up may not be needed given it's mild and rare clinical course. Plan -MD/ARLET q6-12 mon with labs. Time spent today: 50 min. Merna Coronel MD PhD documented in this [facility] Work Phone: [phone] 110-406612-01-2023 Evaluation + Plan note* Assessment & Plan Note - ROGE Jimenez - 05/15/2023 11:15 AM ESTAssociated Problem(s): Burkitt lymphoma (CMS/HCC) Assessment: Mr. 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 He is s/p CODOX-M and IVAC he presents for follow up. PET/CT shows complete remission. Patient presented with new onset sx of changes in vision, fatigue, weight loss and confusion. MRI brain and PET/CT was negative for disease, all sx have since resolved. Continue to follow up every 3 months for the first 2 years then every 6 months until year 5. Patient will likely be cured of his disease. Will need long-term follow up for risk of treatment related malignancies. Plan: limited stage BL CODOX-M/IVAC X4 total PET/CT no evidence of disease at EOT developed confusion, mental cloudiness and weight loss-MRI brain negative and PET/CT negative for disease follow up in 6 months, no need for further scans [facility] Work Phone: [phone]) 558-899412-01-2023 Miscellaneous Notes* Assessment & Plan Note - ROGE Jimenez - 05/15/2023 11:15 AM ESTAssociated Problem(s): Burkitt lymphoma (CMS/HCC) Assessment: Mr. 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 He is s/p CODOX-M and IVAC he presents for follow up. PET/CT shows complete remission. Patient presented with new onset sx of changes in vision, fatigue, weight loss and confusion. MRI brain and PET/CT was negative for disease, all sx have since resolved. Continue to follow up every 3 months for the first 2 years then every 6 months until year 5. Patient will likely be cured of his disease. Will need manager long term care follow up for risk of treatment related malignancies. Plan: limited stage BL CODOX-M/IVAC X4 total PET/CT no evidence of disease at EOT developed confusion, mental cloudiness and weight loss-MRI brain negative and PET/CT negative for disease follow up in 6 months, no need for further scans [facility]: [phone]) [phone] History of Present illness Narrative* ROGE Jimenez - 05/15/2023 9:30 AM EST Patient ID: Parish Raza is a 32 y.o. male. Referring Physician: No referring provider defined for this encounter. Primary Care Provider: No primary care provider on file. Visit Type: Follow Up Subjective Treatment History: Mr. Parish Raza is a 31 yo WM that was admitted to [facility] for excisional LN biopsy of R neck mass with FNA biopsy which showed c myc+ Burkitts lymphoma. Pt referred to Dr. Uriel Obrien at [facility] by Dr. Farmer for biopsy and further evaluation and treatment. Biopsy performed on 04/22/19 revealed CD20, CD10, BCL6, MYC and CD43 with 100% KI-67 and c-myc translocated. A Pet/CT on 04/25/19 showed hypermetabolic intensity in R neck mass, hypermetabolic supraclavicular LNs, symmetric oropharyngeal tonsil activity, diffuse metabolic activity throughout the bone marrow, and no hypermetabolic LAD below the diaphragm. A bone marrow biopsy on 04/27 was performed and was negative for lymphoma. He wasstarted on Walker regimen CODOX-M ( Cytoxan, doxorubicin, vincristine and methotrexate). Two LP's were done while inpatient for intrathecal mtx and were negative for disease. He was discharged and received outpatient neulasta on 05/10. cycle #2 IVAC given on 05/24, neulasta on 05/31 Cycle #3 1/3 CODOX M cycle #4 IVAC planned for 07/18 PET/CT shows complete remission August 2019. Chief Complaint: follow up Burkitt's lymphoma Interval History: Mr. Parish Raza is a 32 yo WM diagnosis of stage II Burkitt's lymphoma. He is s/p 4 cycles of Walker regimen. He is in a complete remission. Since his last visit, he has been feeling well. 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 He is busy with his 2 children. Vertigo is less often than previous. No fever, chills or night sweats. He has a good level of energy. Weight is stable. Review of Systems Constitutional: Negative. HENT: Negative. Eyes: Negative. Respiratory: Negative. Cardiovascular: Negative. Gastrointestinal: Negative. Endocrine: Negative. Genitourinary: Negative. Musculoskeletal: Negative. Skin: Negative. Neurological: Negative. Hematological: Negative. Psychiatric/Behavioral: Negative. Objective BSA: 2.35 meters squared BP 121/78 (BP Location: Left arm, Patient Position: Sitting) Pulse 87 Temp 35.9 C (96.6 F) (Core) Resp 18 Ht 1.848 m (6' 0.76) Wt 108 kg (237 lb 12.8 oz) SpO2 98% BMI 31.58 kg/m has no past medical history on file. has no past surgical history on file. No family history on file. Oncology History No history exists. Parish Raza reports that he has never smoked. He has never used smokeless tobacco. He has no history on file for alcohol use. He has no history on file for drug use. Physical Exam Vitals reviewed. Constitutional: Appearance: Normal appearance. HENT: Head: Normocephalic and atraumatic. Nose: Nose normal. Mouth/Throat: Mouth: Mucous membranes are moist. Pharynx: Oropharynx is clear. Eyes: Extraocular Movements: Extraocular movements intact. Conjunctiva/sclera: Conjunctivae normal. Pupils: Pupils are equal, round, and reactive to light. Cardiovascular: Rate and Rhythm: Normal rate and regular rhythm. Pulses: Normal pulses. Heart sounds: Normal heart sounds. Pulmonary: Effort: Pulmonary effort is normal. Breath sounds: Normal breath sounds. Abdominal: General: Bowel sounds are normal. Palpations: Abdomen is soft. Musculoskeletal: General: Normal range of motion. Cervical back: Normal range of motion. Skin: General: Skin is warm and dry. Neurological: General: No focal deficit present. Mental Status: He is alert and oriented to person, place, and time. Psychiatric: Mood and Affect: Mood normal. Behavior: Behavior normal. Thought Content: Thought content normal. Judgment: Judgment normal. WBC Date/Time Value Ref Range Status 05/15/2023 08:51 AM 7.6 4.4 - 11.3 x10*3/uL Final 11/14/2022 10:58 AM 5.7 4.4 - 11.3 x10E9/L Final 05/16/2022 10:59 AM 4.4 4.4 - 11.3 x10E9/L Final 10/21/2021 08:35 AM 7.0 4.4 - 11.3 x10E9/L Final nRBC Date Value Ref Range Status 05/15/2023 0.0 0.0 - 0.0 /100 WBCs Final 08/11/2019 0.7 0.0 - 0.0 /100 WBC Final 07/23/2019 0.0 0.0 - 0.0 /100 WBC Final 07/22/2019 0.0 0.0 - 0.0 /100 WBC Final RBC Date Value Ref Range Status 05/15/2023 5.33 4.50 - 5.90 x10*6/uL Final 11/14/2022 5.20 4.50 - 5.90 x10E12/L Final 05/16/2022 4.92 4.50 - 5.90 x10E12/L Final 10/21/2021 4.79 4.50 - 5.90 x10E12/L Final Hemoglobin Date Value Ref Range Status 05/15/2023 15.8 13.5 - 17.5 g/dL Final 11/14/2022 15.3 13.5 - 17.5 g/dL Final 05/16/2022 14.5 13.5 - 17.5 g/dL Final 10/21/2021 14.5 13.5 - 17.5 g/dL Final Hematocrit Date Value Ref Range Status 05/15/2023 44.9 41.0 - 52.0 % Final 11/14/2022 43.6 41.0 - 52.0 % Final 05/16/2022 40.4 (L) 41.0 - 52.0 % Final 10/21/2021 40.8 (L) 41.0 - 52.0 % Final MCV Date/Time Value Ref Range Status 05/15/2023 08:51 AM 84 80 - 100 fL Final 11/14/2022 10:58 AM 84 80 - 100 fL Final 05/16/2022 10:59 AM 82 80 - 100 fL Final 10/21/2021 08:35 AM 85 80 - 100 fL Final MCH Date/Time Value Ref Range Status 05/15/2023 08:51 AM 29.6 26.0 - 34.0 pg Final MCHC Date/Time Value Ref Range Status 05/15/2023 08:51 AM 35.2 32.0 - 36.0 g/dL Final 11/14/2022 10:58 AM 35.1 32.0 - 36.0 g/dL Final 05/16/2022 10:59 AM 35.9 32.0 - 36.0 g/dL Final 10/21/2021 08:35 AM 35.5 32.0 - 36.0 g/dL Final RDW Date/Time Value Ref Range Status 05/15/2023 08:51 AM 12.3 11.5 - 14.5 % Final 11/14/2022 10:58 AM 12.8 11.5 - 14.5 % Final 05/16/2022 10:59 AM 12.2 11.5 - 14.5 % Final 10/21/2021 08:35 AM 12.1 11.5 - 14.5 % Final Platelets Date/Time Value Ref Range Status 05/15/2023 08:51 AM 201 150 - 450 x10*3/uL Final 11/14/2022 10:58 AM 211 150 - 450 x10E9/L Final 05/16/2022 10:59 AM 169 150 - 450 x10E9/L Final 10/21/2021 08:35 AM 190 150 - 450 x10E9/L Final No results found for: MPV Neutrophils % Date/Time Value Ref Range Status 05/15/2023 08:51 AM 66.4 40.0 - 80.0 % Final 11/14/2022 10:58 AM 56.7 40.0 - 80.0 % Final 05/16/2022 10:59 AM 48.5 40.0 - 80.0 % Final 10/21/2021 08:35 AM 63.3 40.0 - 80.0 % Final Immature Granulocytes %, Automated Date/Time Value Ref Range Status 05/15/2023 08:51 AM 0.3 0.0 - 0.9 % Final Comment: Immature Granulocyte Count (IG) includes promyelocytes, myelocytes and metamyelocytes but does not include bands. Percent differential counts (%) should be interpreted in the context of the absolute cell counts (cells/UL). 11/14/2022 10:58 AM 0.3 0.0 - 0.9 % Final Comment: Immature Granulocyte Count (IG) includes promyelocytes, myelocytes and metamyelocytes but does not include bands. Percent differential counts (%) should be interpreted in the context of the absolute cell counts (cells/L). 05/16/2022 10:59 AM 0.2 0.0 - 0.9 % Final Comment: Immature Granulocyte Count (IG) includes promyelocytes, myelocytes and metamyelocytes but does not include bands. Percent differential counts (%) should be interpreted in the context of the absolute cell counts (cells/L). 10/21/2021 08:35 AM 0.3 0.0 - 0.9 % Final Comment: Immature Granulocyte Count (IG) includes promyelocytes, myelocytes and metamyelocytes but does not include bands. Percent differential counts (%) should be interpreted in the context of the absolute cell counts (cells/L). Lymphocytes % Date/Time Value Ref Range Status 05/15/2023 08:51 AM 19.1 13.0 - 44.0 % Final 11/14/2022 10:58 AM 29.4 13.0 - 44.0 % Final 05/16/2022 10:59 AM 37.9 13.0 - 44.0 % Final 10/21/2021 08:35 AM 18.9 13.0 - 44.0 % Final 08/08/2019 11:00 AM 4.0 13.0 - 44.0 % Final 08/04/2019 01:15 PM 4.0 13.0 - 44.0 % Final 08/01/2019 10:34 AM 8.0 13.0 - 44.0 % Final Monocytes % Date/Time Value Ref Range Status 05/15/2023 08:51 AM 11.6 2.0 - 10.0 % Final 11/14/2022 10:58 AM 10.5 2.0 - 10.0 % Final 05/16/2022 10:59 AM 10.0 2.0 - 10.0 % Final 10/21/2021 08:35 AM 14.8 2.0 - 10.0 % Final 08/08/2019 11:00 AM 12.0 2.0 - 10.0 % Final 08/04/2019 01:15 PM 8.0 2.0 - 10.0 % Final 08/01/2019 10:34 AM 9.0 2.0 - 10.0 % Final Eosinophils % Date/Time Value Ref Range Status 05/15/2023 08:51 AM 2.2 0.0 - 6.0 % Final 11/14/2022 10:58 AM 2.6 0.0 - 6.0 % Final 05/16/2022 10:59 AM 2.7 0.0 - 6.0 % Final 10/21/2021 08:35 AM 2.3 0.0 - 6.0 % Final 08/08/2019 11:00 AM 0.0 0.0 - 6.0 % Final 08/04/2019 01:15 PM 0.0 0.0 - 6.0 % Final 08/01/2019 10:34 AM 0.0 0.0 - 6.0 % Final Basophils % Date/Time Value Ref Range Status 05/15/2023 08:51 AM 0.4 0.0 - 2.0 % Final 11/14/2022 10:58 AM 0.5 0.0 - 2.0 % Final 05/16/2022 10:59 AM 0.7 0.0 - 2.0 % Final 10/21/2021 08:35 AM 0.4 0.0 - 2.0 % Final 08/08/2019 11:00 AM 0.0 0.0 - 2.0 % Final 08/04/2019 01:15 PM 0.0 0.0 - 2.0 % Final 08/01/2019 10:34 AM 0.0 0.0 - 2.0 % Final Neutrophils Absolute Date/Time Value Ref Range Status 05/15/2023 08:51 AM 5.06 1.20 - 7.70 x10*3/uL Final Comment: Percent differential counts (%) should be interpreted in the context of the absolute cell counts (cells/uL). 11/14/2022 10:58 AM 3.25 1.20 - 7.70 x10E9/L Final 05/16/2022 10:59 AM 2.14 1.20 - 7.70 x10E9/L Final 10/21/2021 08:35 AM 4.44 1.20 - 7.70 x10E9/L Final Immature Granulocytes Absolute, Automated Date/Time Value Ref Range Status 05/15/2023 08:51 AM 0.02 0.00 - 0.70 x10*3/uL Final Lymphocytes Absolute Date/Time Value Ref Range Status 05/15/2023 08:51 AM 1.45 1.20 - 4.80 x10*3/uL Final 11/14/2022 10:58 AM 1.69 1.20 - 4.80 x10E9/L Final 05/16/2022 10:59 AM 1.67 1.20 - 4.80 x10E9/L Final 10/21/2021 08:35 AM 1.33 1.20 - 4.80 x10E9/L Final Monocytes Absolute Date/Time Value Ref Range Status 05/15/2023 08:51 AM 0.88 0.10 - 1.00 x10*3/uL Final 11/14/2022 10:58 AM 0.60 0.10 - 1.00 x10E9/L Final 05/16/2022 10:59 AM 0.44 0.10 - 1.00 x10E9/L Final 10/21/2021 08:35 AM 1.04 (H) 0.10 - 1.00 x10E9/L Final Eosinophils Absolute Date/Time Value Ref Range Status 05/15/2023 08:51 AM 0.17 0.00 - 0.70 x10*3/uL Final 11/14/2022 10:58 AM 0.15 0.00 - 0.70 x10E9/L Final 05/16/2022 10:59 AM 0.12 0.00 - 0.70 x10E9/L Final 10/21/2021 08:35 AM 0.16 0.00 - 0.70 x10E9/L Final 08/08/2019 11:00 AM 0.00 0.00 - 0.70 x10E9/L Final 08/04/2019 01:15 PM 0.00 0.00 - 0.70 x10E9/L Final 08/01/2019 10:34 AM 0.00 0.00 - 0.70 x10E9/L Final Basophils Absolute Date/Time Value Ref Range Status 05/15/2023 08:51 AM 0.03 0.00 - 0.10 x10*3/uL Final 11/14/2022 10:58 AM 0.03 0.00 - 0.10 x10E9/L Final 05/16/2022 10:59 AM 0.03 0.00 - 0.10 x10E9/L Final 10/21/2021 08:35 AM 0.03 0.00 - 0.10 x10E9/L Final 08/08/2019 11:00 AM 0.00 0.00 - 0.10 x10E9/L Final 08/04/2019 01:15 PM 0.00 0.00 - 0.10 x10E9/L Final 08/01/2019 10:34 AM 0.00 0.00 - 0.10 x10E9/L Final No components found for: PT aPTT Date/Time Value Ref Range Status 07/18/2019 12:14 PM 30 28 - 38 sec Final Comment: THE APTT IS NO LONGER USED FOR MONITORING UNFRACTIONATED HEPARIN THERAPY. FOR MONITORING HEPARIN THERAPY, USE THE HEPARIN ASSAY. 06/26/2019 03:49 PM 30 28 - 38 sec Final Comment: THE APTT IS NO LONGER USED FOR MONITORING UNFRACTIONATED HEPARIN THERAPY. FOR MONITORING HEPARIN THERAPY, USE THE HEPARIN ASSAY. 06/20/2019 02:04 AM 27 (L) 28 - 38 sec Final Comment: THE APTT IS NO LONGER USED FOR MONITORING UNFRACTIONATED HEPARIN THERAPY. FOR MONITORING HEPARIN THERAPY, USE THE HEPARIN ASSAY. Assessment/Plan Problem List Items Addressed This Visit ICD-10-CM Burkitt lymphoma (CMS/HCC) - Primary C83.70 Assessment: Mr. 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 He is s/p CODOX-M and IVAC he presents for follow up. PET/CT shows complete remission. Patient presented with new onset sx of changes in vision, fatigue, weight loss and confusion. MRI brain and PET/CT was negative for disease, all sx have since resolved. Continue to follow up every 3 months for the first 2 years then every 6 months until year 5. Patient will likely be cured of his disease. Will need manager long term care follow up for risk of treatment related malignancies. Plan: limited stage BL CODOX-M/IVAC X4 total PET/CT no evidence of disease at EOT developed confusion, mental cloudiness and weight loss-MRI brain negative and PET/CT negative for disease follow up in 6 months, no need for further scans Relevant Orders CBC and Auto Differential (Completed) Comprehensive Metabolic Panel (Completed) Lactate dehydrogenase (Completed) Clinic Appointment Request MERNA CORONEL CBC and Auto Differential Comprehensive metabolic panel Lactate dehydrogenase ROGE Jimenez [facility] Evaluation noteNo assessment information available [facility] Work Phone: Evaluation note* Diagnosis Burkitt lymphoma, unspecified body region (CMS/HCC)- Primary documented in this encounter [facility] Work Phone: Evaluation note* Diagnosis Burkitt lymphoma, unspecified body region (Multi) documented in this encounter [facility] Work Phone: Evaluation note* Diagnosis Burkitt lymphoma, unspecified body region (Multi)- Primary Burkitt lymphoma, unspecified body region (Multi) documented in this encounter [facility] Work Phone: Hospital Discharge instructionsAdditional Instructions Your evaluation in the Emergency Department did not reveal any acute reason for admission. However, I want to emphasize that you may be early in the course of a disease process or illness even if it is not present. For this reason you should follow-up within 24 hours for reevaluation with either your primary care physician or if necessary back here in the Emergency Department. You should return to the Emergency Department immediately if your symptoms worsen or new symptoms develop.[facility] Work Phone: Reason for referral (narrative)No reason for referral information availableWooSelect [facility] Work Phone: Advance Directives Advance Directive Response Recorded Date/ Time Living Will No June 05 7:43pm Power of Documentation Coordinator No June 05, 2019 7:43pm Advance Directive Response Recorded Date/ Time Living Will No June 05 019 6:43pm Power of Documentation Coordinator No June 05, 2019 6:43pm Documents on File Type Date Recorded 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 No February 15, 2025 10:52pm Advance Directive Response Recorded Date/ Time Do you have a Healthcare Power of Documentation Coordinator? No February 15, 2025 10:52pm Do you have a Healthcare Power of Documentation Coordinator? No February 16, 2025 4:07pm Summary Purpose Family History No Family History Records FoundNo Family History Records FoundNo Family History Records Found Chief Complaint and Reason for Visit Chief Complaint Admit Date nosebleed February 15, 2025 8:47pm Chief Complaint Admit Date nosebleed February 15, 2025 8:47pm NOSEBLEED February 16, 2025 1:54pm Additional Source Comments Goals (unrecognized section and content) Goals may be documented in a n alternate sectionGoals may be documented in an alternate sectionGoals may be documented in an alternate sectionGoals may be documented in an alternate section Care Teams (unrecognized sec tion and content) Team Status: Active Member Role Status Dates Dr. Armando Brito MD Family Provider Active Fannie Guzman NP-C Primary Care Provider Acti ve Team Status: Inactive Member Role Status Dates Fannie Guzman NP-C Primary Care Provider, Att ending Provider Active Compound Machine Operator Relationship Specialty Start Date End Date Mary Anne Maxwell, WALKING DRAGLINE OPERATOR-STUDENT ADMISSIONS CLERK Office Address Unavailable as of 07/25/2023 PCP - Fanny MCDOWELLO PCP 02/13/23 Merna Coronel MD PhD [address] [place] [address] Consulting Physician Hematology and Oncology 11/13/23 Compound Machine Operator Relationship Specialty Start Date End Date Generic Provider, [place] [address] PCP - General Coal Hauler Operator 6/17/25 Merna Coronel MD PhD Consulting Physician Hematology and Oncology 11/13/23 Team Status: Active Member Role/Relationship Status Dates Ashley Knox MD Primary Care Provider Active Team Status: Inactive Member Role/Relationship Status Dates Ashley Knox MD Primary Care Provider Active St art: February 15, 2025 End: February 16, 2025 Dr. Michael Welch DO Emergency Provider Active Start: February 15, 2025 End: February 16, 2025 Team Status: Inactive Member Role/Relationship Status Dates Ashley Knox MD Primary Care Provider Active St art: February 16, 2025 End: February 16, 2025 Dr. Morelia Samano MD Emergency Provider Active S tart: February 16, 2025 End: February 16, 2025 (unrecognized sect ion and content) No Status Records FoundNo Status Records FoundNo Status Records Found INFORMATION SOURCE (unrecogn ized section and content) DATE CREATED AUTHOR 11/22/2022 [facility] DATE CREATED AUTHOR AUTHOR'S ORGANIZ ATION 08/07/2024 [facility] DATE CREATED AUTHOR AUTHOR'S ORGANIZ ATION 12/07/2024 [facility] FOR RECORDS PERTAINING TO PATIENTS WHO ARE OR HAVE BEEN ENROLLED IN A CHEMICAL DEPENDENCY/SUBSTANCEABUSE PROGRAM, SOME INFORMATION MAY BE OMITTED. This clinical summary was aggregated from multiple sources. Caution should be exercised in using it in the provision of clinical care. This summary normalizes information from multiple sources, and as a consequence, information in this document may materially change the coding, format and clinical context of patient data. In addition, data may be omitted in some cases. CLINICAL DECISIONS SHOULD BE BASED ON THE PRIMARY CLINICAL RECORDS. [employer] provides no warranty or guarantee of the accuracy or completeness of information in this document.
== END 2025-02-16 17:00 | disposition home or self-care (01) ==
PROVIDERS: Emergency Provider Student in an Organized Health Care Education/Training Program; PCP Family Medicine; Visit Provider Student in an Organized Health Care Education/Training Program
DX: R04.0 Epistaxis (principal)
CPT/HCPCS: 99282

== ENCOUNTER → 2025-05-25 | Outpatient (CLI) | payer BC, SELFPAY ==
--- NOTE | 2025-05-25 10:10 | RAD_ITS ---
PROCEDURE: CHEST PA AND LATERAL 05/25/2025 REASON FOR EXAM: SHORTNESS OF BREATH TECHNIQUE: Procedure Code: RADCXR Modality: DX Procedure: CHEST PA AND LATERAL COMPARISON: 06/05/2019 FINDINGS: Hardware: None. Heart: The heart size is normal. Mediastinum: The mediastinal contour is unremarkable. Lungs: The lungs are clear. No pneumothorax or pleural effusion. Bones: The bones are unremarkable. RAD/Chest PA and Lateral IMPRESSION: NO ACUTE FINDINGS. Reading [facility]
[2025-05-25 12:30] LABS: Hematocrit 43.8 % (40-54); Hemoglobin 15.7 g/dL (13.0-16.5); Immature Granulocytes Count 0.020 X10^3/uL (0.0-0.0); Mean Corp Hgb Conc 35.8 g/dL (32-36); Mean Corpuscular Volume 81.9 fL (80-94); Mean Platelet Vol. 8.9 fl (6.2-12.0); NRBC Flagged by Analyzer 0 % (0-5); Platelet Count 245 K/mm3 (150-450); RBC Distribution Width CV 12.7 % (11.6-14.6); RBC Distribution Width SD 37.3 fl (35.1-43.9); Red Blood Count 5.35 M/mm3 (4.6-6.2); White Blood Count 5.4 K/mm3 (4.4-11.0)
== END | disposition home or self-care (01) ==
PROVIDERS: PCP Family Medicine; Referring Provider Family Medicine; Visit Provider Family Medicine
DX: R06.02 Shortness of breath (principal); C83.7 Burkitt lymphoma
CPT/HCPCS: 71046; 85025